=== PATIENT | male | born 1950 | race Caucasian/White ===

== ENCOUNTER 2016-03-12 | Outpatient (CLI) | payer MEDICARE, OTHER | END 2016-03-12 09:12 | disposition home or self-care (01) | DX: Z53.9 Procedure and treatment not carried out, unspecified reason (principal) ==

== ENCOUNTER 2016-03-16 09:17 | Outpatient (CLI) | payer MEDICARE, OTHER | END 2016-03-16 09:18 | disposition home or self-care (01) | DX: N05.9 Unspecified nephritic syndrome with unspecified morphologic changes (principal); T86.10 Unspecified complication of kidney transplant; B34.9 Viral infection, unspecified; D70.9 Neutropenia, unspecified ==

== ENCOUNTER 2016-06-14 09:02 | Outpatient (CLI) | payer MEDICARE, OTHER | END 2016-06-14 09:03 | disposition home or self-care (01) | DX: N05.9 Unspecified nephritic syndrome with unspecified morphologic changes (principal); D70.9 Neutropenia, unspecified; T86.10 Unspecified complication of kidney transplant ==

== ENCOUNTER 2016-06-21 10:21 | Day surgery (SDC) | payer MEDICARE, OTHER ==
[2016-06-21] MEDS ORDERED: LACTATED RINGERS 1,000 ML IV ONE (10:35)
[2016-06-21] MEDS ORDERED: fentaNYL 100 MCG/2 ML VIAL IVP ONE (13:15)
[2016-06-21] MEDS ORDERED: MIDAZOLAM 2 MG/2 ML VIAL IVP ONE (13:15)
== END 2016-06-21 10:22 | disposition home or self-care (01) ==
PROC: 0DJD8ZZ Inspection of Lower Intestinal Tract, Via Natural or Artificial Opening Endoscopic (ICD-10-PCS; principal; 2016-06-21 11:30)
DX: Z12.11 Encounter for screening for malignant neoplasm of colon (principal); Z86.010 Personal history of colon polyps; K64.8 Other hemorrhoids; K57.30 Diverticulosis of large intestine without perforation or abscess without bleeding; Z94.0 Kidney transplant status; G47.30 Sleep apnea, unspecified; E03.9 Hypothyroidism, unspecified
CPT/HCPCS: G0105; J7120

== ENCOUNTER 2016-06-23 12:06 | Outpatient (CLI) | payer MEDICARE, OTHER ==
[2016-06-25 14:00] LABS: TEST RESULT REPORT (())
== END 2016-06-23 12:07 | disposition home or self-care (01) ==
LOC: LAB 12:06
PROVIDERS: ATTEND Internal Medicine Nephrology
DX: Z94.0 Kidney transplant status (principal); E83.40 Disorders of magnesium metabolism, unspecified; Z48.298 Encounter for aftercare following other organ transplant; T86.90 Unspecified complication of unspecified transplanted organ and tissue; B34.9 Viral infection, unspecified
CPT/HCPCS: 36415; 81599; 82306; 87799; 87999

== ENCOUNTER 2016-07-19 09:12 | Outpatient (CLI) | payer MEDICARE, OTHER ==
[2016-07-19 09:51] LABS: HCT - HEMATOCRIT 40.7 % (42.0-52.0); HGB - HEMOGLOBIN 13.8 g/dL (14.0-18.0); MEAN CORPUSCULAR HEMOGLOBIN 28.8 pg (27.0-31.0); MEAN CORPUSCULAR HGB CONC 33.9 g/dL (32.0-36.0); MEAN CORPUSCULAR VOLUME 84.9 fL (80.0-94.0); MEAN PLATELET VOLUME 9.2 fL (7.4-11.4); RED BLOOD COUNT 4.79 10^6/uL (4.70-6.10); RED CELL DISTRIBUTION WIDTH 14.6 % (12.0-15.0); WHITE BLOOD COUNT 9.2 x10^3/uL (4.8-10.8)
[2016-07-19 10:01] LABS: CALCIUM 9.8 mg/dL (8.5-10.3); CREATININE 1.2 mg/dL (0.6-1.2); POTASSIUM 3.8 mmol/L (3.5-5.0)
[2016-07-22 03:53] LABS: TEST RESULT REPORT (())
== END 2016-07-19 09:13 | disposition home or self-care (01) ==
LOC: LAB 09:12
PROVIDERS: ATTEND Internal Medicine Nephrology
DX: N05.9 Unspecified nephritic syndrome with unspecified morphologic changes (principal); D70.9 Neutropenia, unspecified; D53.1 Other megaloblastic anemias, not elsewhere classified; T86.10 Unspecified complication of kidney transplant; B34.9 Viral infection, unspecified
CPT/HCPCS: 36415; 80048; 80197; 81599; 87999

== ENCOUNTER 2016-10-20 09:04 | Outpatient (CLI) | payer MEDICARE, OTHER ==
[2016-10-20 10:10] LABS: BASOPHILS % (AUTO) 1.4 %; EOSINOPHILS % (AUTO) 2.2 %; HCT - HEMATOCRIT 41.5 % (42.0-52.0); HGB - HEMOGLOBIN 14.2 g/dL (14.0-18.0); LYMPHOCYTES % (AUTO) 15.7 %; MEAN CORPUSCULAR HGB CONC 34.2 g/dL (32.0-36.0); MEAN CORPUSCULAR VOLUME 84.8 fL (80.0-94.0); MEAN PLATELET VOLUME 9.2 fL (7.4-11.4); MONOCYTES % (AUTO) 7.4 %; NEUTROPHILS % (AUTO) 73.3 %; RED CELL DISTRIBUTION WIDTH 13.9 % (12.0-15.0); UNCORRECTED WHITE BLOOD COUNT 8.7 x10^3/uL; WHITE BLOOD COUNT 8.7 x10^3/uL (4.8-10.8)
[2016-10-20 10:12] LABS: BAND NEUTROPHILS % (MANUAL) 0 %
[2016-10-20 10:15] LABS: BILIRUBIN,URINE NEGATIVE (NEGATIVE)
[2016-10-20 10:18] LABS: UA CHARGE (STRIP ONLY) YES; UR CULTURE IF IND NOT INDICATED
[2016-10-20 10:23] LABS: ALBUMIN/GLOBULIN RATIO 1.9 (1.0-2.2); CREATININE 1.4 mg/dL (0.6-1.2); MAGNESIUM 1.6 mg/dL (1.7-2.8); POTASSIUM 4.2 mmol/L (3.5-5.0); TOTAL PROTEIN 6.4 g/dL (6.7-8.2)
[2016-10-20 10:32] LABS: BASOPHILS % (MANUAL) 1 %; EOSINOPHILS % (MANUAL) 3 %; LYMPHOCYTES % (MANUAL) 24 %; NEUTROPHILS % (MANUAL) 64 %; TOTAL CELLS COUNTED 100
[2016-10-20 10:33] LABS: NP AUTO DIFFERENTIAL? YES; NP MAN DIFFERENTIAL? NO; PLATELET ESTIMATE, MANUAL NORMAL (130-450,000) (NORMAL); PLATELET MORPHOLOGY 1+ LARGE PLATELETS (NORMAL)
[2016-10-20 10:36] LABS: CHOL/HDL RATIO 4.2 (<5.0); CHOLESTEROL 147 mg/dL; HDL CHOLESTEROL 35 mg/dL; LDL/HDL RATIO 1.9 (<3.6); TRIGLYCERIDES 221 mg/dL; VLDL CHOLESTEROL 44 mg/dL
[2016-10-20 10:48] LABS: HEMOGLOBIN A1C 0.79 g/dL
[2016-10-25 11:57] LABS: TEST RESULT REPORT (())
== END 2016-10-20 09:05 | disposition home or self-care (01) ==
LOC: LAB 09:04
PROVIDERS: ATTEND Internal Medicine Nephrology
DX: N05.9 Unspecified nephritic syndrome with unspecified morphologic changes (principal); Z94.0 Kidney transplant status; R82.99 Other abnormal findings in urine; E11.9 Type 2 diabetes mellitus without complications; E78.5 Hyperlipidemia, unspecified; Z12.5 Encounter for screening for malignant neoplasm of prostate; B34.9 Viral infection, unspecified; D70.9 Neutropenia, unspecified; T86.10 Unspecified complication of kidney transplant; Z48.298 Encounter for aftercare following other organ transplant; T86.90 Unspecified complication of unspecified transplanted organ and tissue; E83.40 Disorders of magnesium metabolism, unspecified
CPT/HCPCS: 36415; 80053; 80061; 80197; 81003; 81599; 82570; 83036; 83735; 84100; 84156; 85025; 87799; G0103; 81001; 84153; 87086

== ENCOUNTER 2016-11-10 13:46 | Outpatient (CLI) | payer MEDICARE, OTHER | END 2016-11-10 13:47 | disposition home or self-care (01) | LOC: SC 13:46 | PROVIDERS: ATTEND Nurse Practitioner Family | DX: G47.33 Obstructive sleep apnea (adult) (pediatric) (principal) | CPT/HCPCS: 99214; G0463; 99212 ==

== ENCOUNTER 2016-12-07 08:59 | Outpatient (CLI) | payer MEDICARE, OTHER ==
[2016-12-07 09:48] LABS: BASOPHILS # (AUTO) 0.1 10^3/uL (0.0-0.1); BASOPHILS % (AUTO) 1.1 %; EOSINOPHILS # (AUTO) 0.2 10^3/uL (0.0-0.7); EOSINOPHILS % (AUTO) 3.2 %; HCT - HEMATOCRIT 40.7 % (42.0-52.0); HGB - HEMOGLOBIN 13.7 g/dL (14.0-18.0); LYMPHOCYTES # (AUTO) 1.4 10^3/uL (1.5-3.5); LYMPHOCYTES % (AUTO) 18.5 %; MEAN CORPUSCULAR HEMOGLOBIN 28.9 pg (27.0-31.0); MEAN CORPUSCULAR HGB CONC 33.8 g/dL (32.0-36.0); MEAN CORPUSCULAR VOLUME 85.7 fL (80.0-94.0); MEAN PLATELET VOLUME 8.9 fL (7.4-11.4); MONOCYTES # (AUTO) 0.7 10^3/uL (0.0-1.0); MONOCYTES % (AUTO) 8.6 %; NEUTROPHILS # (AUTO) 5.2 10^3/uL (1.5-6.6); NEUTROPHILS % (AUTO) 68.6 %; RED BLOOD COUNT 4.75 10^6/uL (4.70-6.10); RED CELL DISTRIBUTION WIDTH 13.9 % (12.0-15.0); UNCORRECTED WHITE BLOOD COUNT 7.6 x10^3/uL; WHITE BLOOD COUNT 7.6 x10^3/uL (4.8-10.8)
[2016-12-07 09:50] LABS: BILIRUBIN,URINE NEGATIVE (NEGATIVE); UA CHARGE (STRIP ONLY) YES; UR CULTURE IF IND NOT INDICATED
[2016-12-07 10:17] LABS: ALBUMIN/GLOBULIN RATIO 1.7 (1.0-2.2); BILIRUBIN,TOTAL 0.6 mg/dL (0.2-1.0); CALCIUM 9.7 mg/dL (8.5-10.3); CREATININE 1.4 mg/dL (0.6-1.2); MAGNESIUM 1.7 mg/dL (1.7-2.8); PHOSPHORUS 2.9 mg/dL (2.5-4.6); POTASSIUM 4.2 mmol/L (3.5-5.0); TOTAL PROTEIN 6.3 g/dL (6.7-8.2)
[2016-12-09 15:21] LABS: TEST RESULT REPORT
[2016-12-10 05:47] LABS: TEST RESULT REPORT
== END 2016-12-07 09:00 | disposition home or self-care (01) ==
LOC: LAB 08:59
PROVIDERS: ATTEND Internal Medicine Nephrology
DX: Z94.0 Kidney transplant status (principal); R82.99 Other abnormal findings in urine; Z48.298 Encounter for aftercare following other organ transplant; T86.90 Unspecified complication of unspecified transplanted organ and tissue; E83.40 Disorders of magnesium metabolism, unspecified; B34.9 Viral infection, unspecified
CPT/HCPCS: 36415; 80053; 80197; 81001; 81003; 81599; 82570; 83735; 84100; 84156; 85025; 87086; 87799

== ENCOUNTER 2017-02-16 15:06 | Outpatient (CLI) | payer MEDICARE, OTHER ==
[2017-02-16 14:04] LABS: BASOPHILS # (AUTO) 0.1 10^3/uL (0.0-0.1); BASOPHILS % (AUTO) 0.7 %; EOSINOPHILS # (AUTO) 0.4 10^3/uL (0.0-0.7); EOSINOPHILS % (AUTO) 4.2 %; HGB - HEMOGLOBIN 14.3 g/dL (14.0-18.0); LYMPHOCYTES # (AUTO) 1.3 10^3/uL (1.5-3.5); LYMPHOCYTES % (AUTO) 14.8 %; MEAN CORPUSCULAR HEMOGLOBIN 29.2 pg (27.0-31.0); MEAN CORPUSCULAR HGB CONC 34.2 g/dL (32.0-36.0); MEAN CORPUSCULAR VOLUME 85.4 fL (80.0-94.0); MEAN PLATELET VOLUME 9.4 fL (7.4-11.4); MONOCYTES # (AUTO) 0.7 10^3/uL (0.0-1.0); MONOCYTES % (AUTO) 8.1 %; NEUTROPHILS # (AUTO) 6.4 10^3/uL (1.5-6.6); NEUTROPHILS % (AUTO) 72.2 %; PLT - PLATELET COUNT 180 10^3/uL (130-450); RED CELL DISTRIBUTION WIDTH 13.8 % (12.0-15.0); WHITE BLOOD COUNT 8.8 x10^3/uL (4.8-10.8)
[2017-02-16 14:23] LABS: ALBUMIN 4.1 g/dL (3.2-5.5); ALBUMIN/GLOBULIN RATIO 1.6 (1.0-2.2); BILIRUBIN,TOTAL 0.5 mg/dL (0.2-1.0); CALCIUM 9.9 mg/dL (8.5-10.3); CREATININE 1.4 mg/dL (0.6-1.2); TOTAL PROTEIN 6.6 g/dL (6.7-8.2)
[2017-02-16 14:43] LABS: PLATELET ESTIMATE, MANUAL NORMAL (130-450,000) (NORMAL); RBC MORPHOLOGY (MULTIPLE) NORMAL APPEARANCE (NORMAL)
[2017-02-16 16:35] LABS: HB2 TOTAL 15.4 g/dL; HEMOGLOBIN A1C 0.78 g/dL; HEMOGLOBIN A1C % 6.8 % (4.6-6.2)
== END 2017-02-16 15:07 | disposition home or self-care (01) ==
LOC: LAB.WCP 15:06
PROVIDERS: ATTEND Family Medicine
DX: R10.11 Right upper quadrant pain (principal); E11.9 Type 2 diabetes mellitus without complications
CPT/HCPCS: 36415; 80053; 83036; 85025

== ENCOUNTER 2017-02-23 07:01 | Outpatient (CLI) | payer MEDICARE, OTHER ==
--- NOTE | 2017-02-23 12:10 | Ultrasound Report ---
DATE OF SERVICE: 02/23/2017 LIMITED ABDOMINAL ULTRASOUND: 02/23/2017 CLINICAL INDICATION: Right upper quadrant pain. TECHNIQUE: Real-time scanning was performed with retail account representative static images obtained. FINDINGS: The liver measures 15.3 cm. Hepatic echogenicity is normal. There is a 2.1 cm cyst in the left lobe. No focal solid lesion or intrahepatic biliary dilatation is seen. The common bile duct measures 5 mm. The gallbladder is normal. The right kidney measures 8.5 cm, and demonstrates an 1.1 cm cyst in the upper pole. No free fluid is present. IMPRESSION: INCIDENTAL HEPATIC CYST. NO EVIDENCE OF CHOLELITHIASIS OR BILIARY OBSTRUCTION. TD: 02/23/2017 13:10
== END 2017-02-23 07:02 | disposition home or self-care (01) ==
LOC: DI 07:01
PROVIDERS: ATTEND Family Medicine
DX: R10.11 Right upper quadrant pain (principal)
CPT/HCPCS: 76705

== ENCOUNTER 2017-03-22 08:57 | Outpatient (CLI) | payer MEDICARE, OTHER ==
[2017-03-22 09:29] LABS: HGB - HEMOGLOBIN 14.2 g/dL (14.0-18.0); MEAN CORPUSCULAR HEMOGLOBIN 29.2 pg (27.0-31.0); MEAN CORPUSCULAR HGB CONC 34.8 g/dL (32.0-36.0); MEAN PLATELET VOLUME 8.8 fL (7.4-11.4); RED BLOOD COUNT 4.88 10^6/uL (4.70-6.10); WHITE BLOOD COUNT 7.7 x10^3/uL (4.8-10.8)
[2017-03-22 09:50] LABS: CALCIUM 9.6 mg/dL (8.5-10.3); CREATININE 1.4 mg/dL (0.6-1.2)
== END 2017-03-22 08:58 | disposition home or self-care (01) ==
LOC: LAB 08:57
PROVIDERS: ATTEND Internal Medicine Nephrology
DX: N05.9 Unspecified nephritic syndrome with unspecified morphologic changes (principal); D70.9 Neutropenia, unspecified; T86.10 Unspecified complication of kidney transplant; B34.9 Viral infection, unspecified; Z94.0 Kidney transplant status
CPT/HCPCS: 36415; 80048; 80197; 81599

== ENCOUNTER 2017-05-11 08:57 | Outpatient (CLI) | payer MEDICARE, OTHER ==
[2017-05-11 09:32] LABS: BILIRUBIN,URINE NEGATIVE (NEGATIVE); GLUCOSE, URINE (UA) NEGATIVE (NEGATIVE); KETONES,URINE (UA) NEGATIVE (NEGATIVE); LEUKOCYTE ESTERASE, URINE NEGATIVE (NEGATIVE); NITRITE,URINE NEGATIVE (NEGATIVE); OCCULT BLOOD,URINE NEGATIVE (NEGATIVE); PROTEIN,URINE NEGATIVE (NEGATIVE); UROBILINOGEN,URINE 0.2 (NORMAL) E.U./dL (NORMAL)
[2017-05-11 09:33] LABS: CLARITY,URINE CLEAR (CLEAR)
[2017-05-11 09:41] LABS: CREATININE,URINE 193.5 mg/dL; PROTEIN/CREATININE RATIO,URINE 0.1 (<=0.2)
[2017-05-11 09:44] LABS: BASOPHILS % (AUTO) 0.9 %; EOSINOPHILS % (AUTO) 3.3 %; HGB - HEMOGLOBIN 14.3 g/dL (14.0-18.0); LYMPHOCYTES % (AUTO) 17.3 %; MEAN CORPUSCULAR HEMOGLOBIN 29.3 pg (27.0-31.0); MEAN CORPUSCULAR HGB CONC 34.5 g/dL (32.0-36.0); MEAN CORPUSCULAR VOLUME 84.9 fL (80.0-94.0); MEAN PLATELET VOLUME 9.1 fL (7.4-11.4); MONOCYTES % (AUTO) 8.3 %; NEUTROPHILS % (AUTO) 70.2 %; PLT - PLATELET COUNT 181 10^3/uL (130-450); RED BLOOD COUNT 4.88 10^6/uL (4.70-6.10); RED CELL DISTRIBUTION WIDTH 14.3 % (12.0-15.0); WHITE BLOOD COUNT 7.4 x10^3/uL (4.8-10.8)
[2017-05-11 09:45] LABS: ALBUMIN 4.1 g/dL (3.2-5.5); ALBUMIN/GLOBULIN RATIO 1.7 (1.0-2.2); BILIRUBIN,TOTAL 0.6 mg/dL (0.2-1.0); CALCIUM 9.4 mg/dL (8.5-10.3); CREATININE 1.3 mg/dL (0.6-1.2); MAGNESIUM 1.7 mg/dL (1.7-2.8); PHOSPHORUS 3.5 mg/dL (2.5-4.6); TOTAL PROTEIN 6.5 g/dL (6.7-8.2)
[2017-05-11 09:50] LABS: ABNORMAL LYMPHS % (MANUAL) 0 %
[2017-05-11 10:15] LABS: BAND NEUTROPHILS % (MANUAL) 2 %; BASOPHILS # (MANUAL) 0.2 10^3/uL (0-0.1); BASOPHILS % (MANUAL) 3 %; LYMPHOCYTES # (MANUAL) 1.4 10^3/uL (1.5-3.5); LYMPHOCYTES % (MANUAL) 16 %; MONOCYTES # (MANUAL) 0.4 10^3/uL (0.0-1.0); NEUTROPHILS # (MANUAL) 5.3 10^3/uL (1.5-6.6); NEUTROPHILS % (MANUAL) 70 %
[2017-05-11 10:16] LABS: DIFFERENTIAL COMMENT MANUAL DIFFERENTIAL
== END 2017-05-11 08:58 | disposition home or self-care (01) ==
LOC: LAB 08:57
PROVIDERS: ATTEND Internal Medicine Nephrology
DX: T86.90 Unspecified complication of unspecified transplanted organ and tissue (principal); E83.40 Disorders of magnesium metabolism, unspecified; Z51.81 Encounter for therapeutic drug level monitoring; Z94.0 Kidney transplant status
CPT/HCPCS: 36415; 80053; 80197; 81001; 81003; 82570; 83735; 84100; 84156; 85025; 87086

== ENCOUNTER 2017-07-25 09:02 | Outpatient (CLI) | payer MEDICARE, OTHER ==
[2017-07-25 09:39] LABS: CALCIUM 9.7 mg/dL (8.5-10.3); CREATININE 1.3 mg/dL (0.6-1.2)
[2017-07-25 09:54] LABS: BASOPHILS % (AUTO) 0.6 %; EOSINOPHILS % (AUTO) 2.9 %; HGB - HEMOGLOBIN 14.4 g/dL (14.0-18.0); LYMPHOCYTES % (AUTO) 15.3 %; MEAN CORPUSCULAR HGB CONC 33.2 g/dL (32.0-36.0); MEAN CORPUSCULAR VOLUME 87.1 fL (80.0-94.0); MONOCYTES % (AUTO) 7.2 %; PLT - PLATELET COUNT 185 10^3/uL (130-450); RED BLOOD COUNT 4.98 10^6/uL (4.70-6.10); RED CELL DISTRIBUTION WIDTH 14.2 % (12.0-15.0); WHITE BLOOD COUNT 7.8 x10^3/uL (4.8-10.8)
[2017-07-25 10:08] LABS: ABNORMAL LYMPHS % (MANUAL) 0 %; BAND NEUTROPHILS % (MANUAL) 0 %
[2017-07-25 10:30] LABS: EOSINOPHILS # (MANUAL) 0.2 10^3/uL (0-0.7); LYMPHOCYTES # (MANUAL) 1.1 10^3/uL (1.5-3.5); LYMPHOCYTES % (MANUAL) 10 %; MONOCYTES # (MANUAL) 0.8 10^3/uL (0.0-1.0); MYELOCYTES % (MANUAL) 1 %; NEUTROPHILS # (MANUAL) 5.6 10^3/uL (1.5-6.6); NEUTROPHILS % (MANUAL) 72 %
[2017-07-25 10:31] LABS: DIFFERENTIAL COMMENT MANUAL DIFFERENTIAL
== END 2017-07-25 09:03 | disposition home or self-care (01) ==
LOC: LAB 09:02
PROVIDERS: ATTEND Internal Medicine Nephrology
DX: N05.9 Unspecified nephritic syndrome with unspecified morphologic changes (principal); D70.9 Neutropenia, unspecified; D63.1 Anemia in chronic kidney disease; T86.10 Unspecified complication of kidney transplant
CPT/HCPCS: 36415; 80048; 80197; 85025

== ENCOUNTER 2017-10-19 09:04 | Outpatient (CLI) | payer MEDICARE, OTHER ==
[2017-10-19 09:26] LABS: BASOPHILS # (AUTO) 0.1 10^3/uL (0.0-0.1); BASOPHILS % (AUTO) 1.3 %; EOSINOPHILS # (AUTO) 0.3 10^3/uL (0.0-0.7); EOSINOPHILS % (AUTO) 3.8 %; HGB - HEMOGLOBIN 14.1 g/dL (14.0-18.0); LYMPHOCYTES # (AUTO) 1.1 10^3/uL (1.5-3.5); LYMPHOCYTES % (AUTO) 14.1 %; MEAN CORPUSCULAR HEMOGLOBIN 29.6 pg (27.0-31.0); MEAN CORPUSCULAR HGB CONC 34.6 g/dL (32.0-36.0); MEAN CORPUSCULAR VOLUME 85.5 fL (80.0-94.0); MEAN PLATELET VOLUME 9.1 fL (7.4-11.4); MONOCYTES # (AUTO) 0.6 10^3/uL (0.0-1.0); MONOCYTES % (AUTO) 7.8 %; NEUTROPHILS # (AUTO) 5.7 10^3/uL (1.5-6.6); PLT - PLATELET COUNT 163 10^3/uL (130-450); RED BLOOD COUNT 4.77 10^6/uL (4.70-6.10); RED CELL DISTRIBUTION WIDTH 14.2 % (12.0-15.0); WHITE BLOOD COUNT 7.8 x10^3/uL (4.8-10.8)
[2017-10-19 09:40] LABS: CALCIUM 9.5 mg/dL (8.5-10.3); CREATININE 1.1 mg/dL (0.6-1.2)
[2017-10-19 09:48] LABS: CHOL/HDL RATIO 3.7 (<5.0); CHOLESTEROL 145 mg/dL; HDL CHOLESTEROL 39 mg/dL; LDL CHOLESTEROL,CALCULATED 73 mg/dL; LDL/HDL RATIO 1.9 (<3.6); VLDL CHOLESTEROL 33 mg/dL
[2017-10-19 13:00] LABS: HEMOGLOBIN A1C 0.83 g/dL; HEMOGLOBIN A1C % 7.2 % (4.6-6.2)
== END 2017-10-19 09:05 | disposition home or self-care (01) ==
LOC: LAB 09:04
PROVIDERS: ATTEND Internal Medicine Nephrology
DX: N05.9 Unspecified nephritic syndrome with unspecified morphologic changes (principal); E11.9 Type 2 diabetes mellitus without complications; D63.1 Anemia in chronic kidney disease; T86.10 Unspecified complication of kidney transplant
CPT/HCPCS: 36415; 80048; 80061; 80197; 83036; 83721; 85025

== ENCOUNTER 2017-11-23 13:40 | Outpatient (CLI) | payer MEDICARE, OTHER | END 2017-11-23 13:41 | disposition home or self-care (01) | LOC: SC 13:40 | PROVIDERS: ATTEND Nurse Practitioner Family | DX: G47.33 Obstructive sleep apnea (adult) (pediatric) (principal); G47.00 Insomnia, unspecified | CPT/HCPCS: 99214; G0463; 99212 ==

== ENCOUNTER 2018-01-09 09:17 | Outpatient (CLI) | payer MEDICARE, OTHER ==
[2018-01-11 18:01] LABS: BK VIRUS DNA QN PCR 588 copies/mL; SOURCE PLASMA
== END 2018-01-09 09:18 | disposition home or self-care (01) ==
LOC: LAB 09:17
PROVIDERS: ATTEND Internal Medicine Nephrology
DX: B34.9 Viral infection, unspecified (principal)
CPT/HCPCS: 36415

== ENCOUNTER 2018-02-10 08:45 | Outpatient (CLI) | payer MEDICARE, OTHER | END 2018-02-10 08:46 | disposition critical access hospital (66) | LOC: EMS 08:45 | PROVIDERS: ATTEND Surgery | DX: M54.9 Dorsalgia, unspecified (principal); R53.1 Weakness | CPT/HCPCS: A0425; A0429 ==

== ENCOUNTER 2018-02-10 08:59 | Inpatient (IN) | payer MEDICARE, OTHER ==
[2018-02-10] MEDS: MAGNESIUM OXIDE 400 MG TABLET PO SCH (09:00)
--- NOTE | 2018-02-10 10:15 | ED Physician Documentation ---
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 He also stated that he had urine and bowel incontinence at 4:00 and at 6:00 this morning. Patient denies any trauma, injury, patient stated he has environmental allergies like runny nose since he visited [place] a week ago. Review of Systems Ten Systems: 10 systems reviewed and negative Constitutional: denies: Fever, Chills, Myalgias Cardiac: denies: Chest pain / pressure Respiratory: denies: Dyspnea GI: denies: Abdominal Pain, Nausea, Vomiting : denies: Dysuria, Frequency Musculoskeletal: reports: Back pain. denies: Neck pain, Extremity pain, Extremity swelling Neurologic: reports: Generalized weakness. denies: Focal weakness, Numbness, Difficulty speaking, Near syncope, Syncope, Altered mental status, Headache, LOC PD PAST MEDICAL HISTORY - Past Medical History Cardiovascular: None Respiratory: None Endocrine/Autoimmune: None GI: GERD Psych: None Musculoskeletal: Osteoarthritis, Fatigue, Chronic back pain - Past Surgical History Past Surgical History: Yes Ortho: Spine surgery - Present Medications Home Medications: Ambulatory Orders Medication Instructions Recorded Confirmed Acetaminophen [Tylenol] 650 mg PO Q6H PRN 05/12/13 02/10/18 Fluconazole [Diflucan] 100 mg PO DAILY 05/12/13 02/10/18 Levothyroxine Sodium [Synthroid] 150 mcg PO DAILY 05/12/13 02/10/18 Omeprazole [Prilosec] 20 mg PO DAILY 05/12/13 02/10/18 RX: Aspirin Chewable [St Mehul 81 mg PO DAILY 05/12/13 02/10/18 Aspirin] RX: Prednisone 5 mg PO DAILY 05/12/13 02/10/18 RX: Simvastatin [Zocor] 10 mg PO DAILY 05/12/13 02/10/18 Fluticasone [Flonase] 1 sprays [place]TON PRN PRN 06/21/16 02/10/18 Losartan [Cozaar] 50 mg PO BID 06/21/16 02/10/18 Pnv95/Ferrous Fumarate/FA 1 each PO DAILY 06/21/16 02/10/18 [ Vitamin Tablet] RX: Albuterol 2.5 mg INH Q4H PRN 06/21/16 02/10/18 RX: Carvedilol 25 mg PO BID 06/21/16 02/10/18 RX: Glipizide 5 mg PO BID 06/21/16 02/10/18 RX: Magnesium Oxide 800 mg PO BID 06/21/16 02/10/18 RX: Metformin HCl 1,000 mg PO BID 06/21/16 02/10/18 RX: Tacrolimus 1.5 mg PO BID 06/21/16 02/10/18 amLODIPine [Norvasc] 5 mg PO BID 06/21/16 02/10/18 - Allergies Allergies/Adverse Reactions: Allergies Allergy/AdvReac Type Severity Reaction Status Date / Time No Known Drug Allergies Allergy Verified 02/10/18 09:07 - Social History Does the pt smoke?: No Smoking Status: Never smoker Does the pt drink ETOH?: No Does the pt have substance abuse?: No - Immunizations Immunizations are current?: Yes - POLST Patient has POLST: Yes POLST Status: DNR PD ED PE NORMAL - Vitals Vital signs reviewed: Yes - General General: Alert and oriented X 3, No acute distress, Well developed/nourished - HEENT HEENT: Moist mucous membranes, Pharynx benign - Neck Neck: Supple, no meningeal sign, No bony TTP - Cardiac Cardiac: RRR, No murmur - Respiratory Respiratory: No respiratory distress, Clear bilaterally - Abdomen Abdomen: Normal bowel sounds, Soft, Non tender, Non distended, No organomegaly - Back Back: No CVA TTP, No spinal TTP - Derm Derm: Normal color, Warm and dry, No rash - Extremities Extremities: No deformity - Neuro Neuro: Alert and oriented X 3, No motor deficit, No sensory deficit, Normal speech - Psych Psych: Normal mood, Normal affect Results - Vitals Vitals: Vital Signs - 24 hr 02/10/18 02/10/18 02/10/18 09:02 12:01 15:33 Temperature 36.5 C Heart Rate 87 71 78 Respiratory 22 16 16 Rate Blood Pressure 130/90 H 138/88 H 158/93 H O2 Saturation 94 96 96 Oxygen O2 Source Room air - Labs Labs: Laboratory Tests 02/10/18 02/10/18 02/10/18 10:31 10:31 10:31 WBC 8.9 RBC 5.38 Hgb 16.0 Hct 46.9 MCV 87.2 MCH 29.7 MCHC 34.0 RDW 13.8 Plt Count 181 MPV 9.3 Neut # (Auto) 7.9 H Lymph # (Auto) 0.1 L Blair # (Auto) 0.5 Eos # (Auto) 0.2 Baso # (Auto) 0.1 Absolute Nucleated RBC 0.00 Nucleated RBC % 0.1 Sodium 140 Potassium 4.1 Chloride 109 Carbon Dioxide 24 Anion Gap 7.0 BUN 26 H Creatinine 1.3 H Estimated GFR (MDRD) 55 L Glucose 182 H Calcium 9.3 Total Bilirubin 1.2 H AST 18 ALT 17 Alkaline Phosphatase 97 Total Creatine Kinase Troponin I < 0.04 Total Protein 6.8 Albumin 4.2 Globulin 2.6 Albumin/Globulin Ratio 1.6 Lipase 49 Urine Color Urine Clarity Urine pH Ur Specific [place] Urine Protein Urine Glucose (UA) Urine Ketones Urine Occult Blood Urine Nitrite Urine Bilirubin Urine Urobilinogen Ur Leukocyte Esterase Ur Microscopic Review Urine Culture Comments 02/10/18 02/10/18 10:31 12:03 WBC RBC Hgb Hct MCV MCH MCHC RDW Plt Count MPV Neut # (Auto) Lymph # (Auto) [place] # (Auto) Eos # (Auto) Baso # (Auto) Absolute Nucleated RBC Nucleated RBC % Sodium Potassium Chloride Carbon Dioxide Anion Gap BUN Creatinine Estimated GFR (MDRD) Glucose Calcium Total Bilirubin AST ALT Alkaline Phosphatase Total Creatine Kinase 56 Troponin I Total Protein Albumin Globulin Albumin/Globulin Ratio Lipase Urine Color DARK YELLOW Urine Clarity CLEAR Urine pH 5.5 Ur Specific [place] >=1.030 H Urine Protein NEGATIVE Urine Glucose (UA) NEGATIVE Urine Ketones TRACE Urine Occult Blood NEGATIVE Urine Nitrite NEGATIVE Urine Bilirubin NEGATIVE Urine Urobilinogen 0.2 (NORMAL) Ur Leukocyte Esterase NEGATIVE Ur Microscopic Review NOT INDICATED Urine Culture Comments NOT INDICATED PD MEDICAL DECISION MAKING - ED course Complexity details: reviewed results, re-evaluated patient, considered differential (Kidney stone, UTI, electrolyte imbalance, lumbar strain, cauda equina syndrome), d/w patient, d/w family, d/w PMD ED course: 1130 patient informed of lab results and agreed to CT scan. Per nurse requesting for IV fluids so he can urinate. 1230 Patient states His back hurts when he would transfer from the CT scan to the stretcher. He is not wanting any pain medication.1440 patient updated on test results.Patient finally agreed to get some pain medication.1630 patient did not tolerated ambulation as his left lumbar area was hurting him With spasms and his knees were unsteady. He stated he cannot go home like this as he lives alone at home. He agreed to Valium p.o. 1642 Case discussed with hospitalist who will admit the patient for observation. He was also informed that patient immune suppressant medication has not been taken for 10 hours. He will order all his meds. Departure - Departure Disposition: ED Place in Observation Clinical Impression: Weakness Back pain Qualifiers: Back pain location: low back pain Chronicity: acute Back pain laterality: left Sciatica presence: without sciatica Qualified Code(s): M54.5 - Low back pain Condition: Stable Discharge Date/Time: 02/10/18 17:17
[2018-02-10 10:41] LABS: BASOPHILS # (AUTO) 0.1 10^3/uL (0.0-0.1); BASOPHILS % (AUTO) 1.2 %; EOSINOPHILS # (AUTO) 0.2 10^3/uL (0.0-0.7); EOSINOPHILS % (AUTO) 2.6 %; LYMPHOCYTES # (AUTO) 0.1 10^3/uL (1.5-3.5); LYMPHOCYTES % (AUTO) 1.5 %; MEAN CORPUSCULAR HEMOGLOBIN 29.7 pg (27.0-31.0); MEAN CORPUSCULAR VOLUME 87.2 fL (80.0-94.0); MEAN PLATELET VOLUME 9.3 fL (7.4-11.4); MONOCYTES # (AUTO) 0.5 10^3/uL (0.0-1.0); MONOCYTES % (AUTO) 5.8 %; NEUTROPHILS # (AUTO) 7.9 10^3/uL (1.5-6.6); NEUTROPHILS % (AUTO) 88.9 %; PLT - PLATELET COUNT 181 10^3/uL (130-450); RED BLOOD COUNT 5.38 10^6/uL (4.70-6.10); RED CELL DISTRIBUTION WIDTH 13.8 % (12.0-15.0); WHITE BLOOD COUNT 8.9 x10^3/uL (4.8-10.8)
[2018-02-10] MEDS ORDERED: SODIUM CHLORIDE 0.9% 1,000 ML IV ONE (10:51)
[2018-02-10 10:52] LABS: ALBUMIN 4.2 g/dL (3.2-5.5); ALBUMIN/GLOBULIN RATIO 1.6 (1.0-2.2); BILIRUBIN,TOTAL 1.2 mg/dL (0.2-1.0); CALCIUM 9.3 mg/dL (8.5-10.3); CREATININE 1.3 mg/dL (0.6-1.2); TOTAL PROTEIN 6.8 g/dL (6.7-8.2)
--- NOTE | 2018-02-10 11:30 | XRAY Report ---
Reason: chest pain Procedure Date: 02/10/2018 Accession Number: [id number] / [id number] Procedure: XR - Chest 1 View X-Ray CPT Code: 85645 FULL RESULT: EXAM: CHEST RADIOGRAPHY EXAM DATE: 02/10/2018 10:59 AM. CLINICAL HISTORY: Chest pain. COMPARISON: 03/07/2015 10:31 AM. TECHNIQUE: 1 view. FINDINGS: Lungs/Pleura: No focal consolidation evident. No pleural effusion. No pneumothorax. Mediastinum: Within exam limitations, the cardiomediastinal contour is normal. Other: Mild scoliosis. IMPRESSION: Negative single view chest. No significant change from prior. RADIA
[2018-02-10 12:11] LABS: KETONES,URINE (UA) TRACE mg/dL (NEGATIVE); LEUKOCYTE ESTERASE, URINE NEGATIVE (NEGATIVE); NITRITE,URINE NEGATIVE (NEGATIVE); OCCULT BLOOD,URINE NEGATIVE (NEGATIVE); PH,URINE 5.5 PH (5.0-7.5); PROTEIN,URINE NEGATIVE (NEGATIVE); UROBILINOGEN,URINE 0.2 (NORMAL) E.U./dL (NORMAL)
[2018-02-10 12:18] LABS: BILIRUBIN,URINE NEGATIVE (NEGATIVE); CLARITY,URINE CLEAR (CLEAR); GLUCOSE, URINE (UA) NEGATIVE (NEGATIVE); ICTOTEST,URINE NEGATIVE
[2018-02-10] MEDS ORDERED: IOVERSOL 320 100 ML VIAL IVP ONE ×3 (12:47→13:23)
--- NOTE | 2018-02-10 14:06 | CT Report ---
Reason: back pain, hx kidney transplant Procedure Date: 02/10/2018 Accession Number: [id number] / [id number] Procedure: CT - Abdomen/Pelvis W/ CPT Code: FULL RESULT: EXAM: CT ABDOMEN AND PELVIS EXAM DATE: 02/10/2018 01:07 PM. CLINICAL HISTORY: Back pain and history of renal transplant. COMPARISONS: None. TECHNIQUE: Routine helical CT imaging was performed through the abdomen and pelvis. IV contrast: OPTI 320 60mL. Enteric contrast: No. Reconstructions: Coronal and sagittal. In accordance with CT protocol optimization, one or more of the following dose reduction techniques were utilized for this exam: automated exposure control, adjustment of mA and/or KV based on patient size, or use of iterative reconstructive technique. FINDINGS: Lung Bases: Unremarkable. Liver: Normal. No masses. Gallbladder/Bile Ducts: Unremarkable. Spleen: Normal. Pancreas: Normal. Adrenal Glands: Normal. Kidneys: Transplanted right lower quadrant kidney appears normal. Right [place] kidney is atrophic and the left [place] kidney is absent. Peritoneal Cavity/Bowel: Diverticulosis without diverticulitis. No free fluid, free air or adenopathy. No masses or acute inflammatory process. Pelvic Organs: Normal. The bladder and visualized pelvic organs are within normal limits. Vasculature: Atherosclerotic. Bones: Approximate 4 mm of anterolisthesis of L3 on L4 status post posterior fusion and decompression at the L3 level. There is also 1.1 cm left lateral listhesis of L3 on L4. Other: Status post right inguinal mesh hernia repair. IMPRESSION: Lumbar spinal listhesis as described. RADIA
[2018-02-10] MEDS ORDERED: MORPHINE 2 MG/ML CARPUJECT IVP STA (14:40)
[2018-02-10] MEDS ORDERED: diazePAM 5 MG TABLET PO STA (16:43)
[2018-02-10] MEDS ORDERED: ACETAMINOPHEN 325 MG TABLET PO PRN (16:46)
[2018-02-10] MEDS ORDERED: ONDANSETRON 4 MG/2 ML VIAL IVP PRN (16:46)
[2018-02-10] MEDS ORDERED: HYDROcod/ACETAM 10 MG/325 MG TABLET PO PRN (16:46)
[2018-02-10] MEDS ORDERED: MORPHINE 2 MG/ML CARPUJECT IVP PRN (16:46)
[2018-02-10] MEDS ORDERED: PROCHLORPERAZINE 10 MG/2 ML VIAL IVP PRN (16:46)
[2018-02-10] MEDS ORDERED: diazePAM 5 MG TABLET PO PRN (16:46)
[2018-02-10] MEDS ORDERED: IBUPROFEN 600 MG TABLET PO PRN (16:46)
[2018-02-10] MEDS ORDERED: HYDROcod/ACETAM 5/325 MG TABLET PO PRN (16:46)
[2018-02-10] MEDS ORDERED: ZOLPIDEM 5 MG TABLET PO PRN (16:46)
[2018-02-10] MEDS ORDERED: PROMETHAZINE 25 MG/1 ML VIAL IM PRN (16:46)
[2018-02-10] MEDS ORDERED: FLUTICASONE NASAL SPRAY NAS PRN (16:52)
--- NOTE | 2018-02-10 17:13 | HISTORY & PHYSICAL EXAMINATION ---
Chief Complaint - Chief Complaint Chief Complaint: Back pain and generalized weakness. History of Present Illness - Admitted From Admitted From:: Emergency department - History Obtained From Records Reviewed: Yes History obtained from: Patient in medical record Exam Limitations: None - History of Present Illness HPI Comment/Other: Patient is a very pleasant 67-year-old gentleman with a past medical history significant for chronic kidney disease stage II with history of a renal transplant on tacrolimus and prednisone, hypertension, type 2 diabetes mellitus, hyperlipidemia, obstructive sleep apnea on CPAP, gout and history of multiple spinal surgeries including a microdiscectomy in 1985, laminectomy in 2012 and a fusion in 2015 who presented to the emergency department with a chief complaint of back pain and generalized weakness. The patient states that yesterday evening he began having severe pain across the lumbar area of his back. He states that it was not midline and was shifting from right to left. He states that he noticed spasms on both sides. He states that later in the evening he had incontinence of both urine and stool. This is when he became very concerned. He states that he went to bed and when he woke up this morning he could not sit up or roll over. He states that he was so weak and finally decided to come into the emergency department. The patient denies any radiation of his back pain. He does not have any focal weakness but finds it very difficult to keep his balance and to sit up. He denies any fevers or chills. He denies any neck stiffness. He denies any recent unintentional weight loss, changes in his appetite, abdominal pain, nausea, vomiting, or diarrhea. The patient denies any headaches. Patient denies any blurry vision, runny nose, sore throat, nasal congestion, difficulty swallowing, chest pain, shortness of air, orthopnea, palpitations, cough, increased lower extremity swelling, PND, joint swelling, polyuria, polydipsia, dysuria, skin rashes, skin changes, night sweats or any other focal neurologic deficits. On presentation to the emergency department the patient was afebrile and slightly hypertensive. The patient otherwise did not have any respiratory distress. The patient underwent routine lab work which showed a normal CBC. The patient had a creatinine of 1.3 which was near his baseline. Patient's other electrolytes were within normal limits. The patient's urinalysis was negative. The patient's troponin was negative. The patient did undergo imaging initially with a chest x-ray which showed no significant change from prior x- ray. The patient also had a CT of his abdomen and pelvis which did show lumbar spinal listhesis. There was finding of 4 mm of anterolisthesis of L3 on L4 status post posterior fusion and decompression at the level of L3. There was also a 1.1 cm left lateral listhesis of L3 on L4. The emergency room physician did do a rectal exam which revealed a good rectal tone. The patient did not have any focal weakness on examination and did not appear to have cauda equina symptoms while in the emergency department. The patient was given a dose of morphine at a dose of Valium in the emergency department with which she did feel better. The patient was stood up and walked in the emergency department however when he got up he felt dizzy and was very weak and unsteady. Given the patient's continued weakness the patient was placed in observation for further treatment of his back pain and muscle spasms. History - Past Medical History Cardiovascular: reports: Hypertension, High cholesterol, Atrial fibrillation Respiratory: reports: Asthma, Sleep apnea, CPAP use Endocrine/Autoimmune: reports: Type 2 diabetes, HyPOthyroidism GI: reports: GERD : reports: Benign prostate hypertrophy, Renal insuffiency Psych: reports: None Musculoskeletal: reports: Osteoarthritis, Gout, Fatigue, Chronic back pain (Multiple spinal surgeries Secondary to bulging disks) MRSA Hx?: No Other Past Medical History: History of coccidiomycosis - Past Surgical History Ortho: reports: Spine surgery - Family & Social History Family History: Mother: Diabetes, Type 2, Father: Diabetes, Type 2 Family History Comment/Other: Patient's father had obstructive sleep apnea Living arrangement: At home Living Situation: With spouse/s.o. 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 He is and lives with his . He works in [employer]. He previously lived in [facility]. He has been living in [facility] since 2003. He does not have any children. He is originally from [place] and went to the [employer] for medical school. He was part of the first graduating class at of the [employer] medical school in 1974. He does not smoke cigarettes, drink alcohol or use any illicit drugs. - POLST Patient has POLST: Yes POLST Status: Full Code Meds/Allgy - Home Medications Home Medications: Ambulatory Orders Medication Instructions Recorded Confirmed Acetaminophen [Tylenol] 650 mg PO Q6H PRN 05/12/13 02/10/18 Aspirin Chewable [St Meh[place] 81 mg PO DAILY 05/12/13 02/10/18 Aspirin] Fluconazole [Diflucan] 100 mg PO DAILY 05/12/13 02/10/18 Levothyroxine Sodium [Synthroid] 150 mcg PO DAILY 05/12/13 02/10/18 Omeprazole [Prilosec] 20 mg PO DAILY 05/12/13 02/10/18 Prednisone 5 mg PO DAILY 05/12/13 02/10/18 Simvastatin [Zocor] 10 mg PO DAILY 05/12/13 02/10/18 Albuterol 2.5 mg INH Q4H PRN 06/21/16 02/10/18 Carvedilol 25 mg PO BID 06/21/16 02/10/18 Fluticasone [Flonase] 1 sprays [place] PRN PRN 06/21/16 02/10/18 Glipizide 5 mg PO BID 06/21/16 02/10/18 Losartan [Cozaar] 50 mg PO BID 06/21/16 02/10/18 Magnesium Oxide 800 mg PO BID 06/21/16 02/10/18 Metformin HCl 1,000 mg PO BID 06/21/16 02/10/18 Pnv95/Ferrous Fumarate/FA 1 each PO DAILY 06/21/16 02/10/18 [ Vitamin Tablet] Tacrolimus 1.5 mg PO BID 06/21/16 02/10/18 amLODIPine [Norvasc] 5 mg PO BID 06/21/16 02/10/18 - Allergies Allergies/Adverse Reactions: Allergies Allergy/AdvReac Type Severity Reaction Status Date / Time No Known Drug Allergies Allergy Verified 02/10/18 09:07 Review of Systems - Other Findings Other Findings: A comprehensive review of systems was performed the pertinent positives and negatives are stated above in the HPI and the remainder of the review of systems is negative. Prior Level of Functionality: Patient is completely independent with all his activities of daily living. Exam - Vital Signs Reviewed Vital Signs: Yes Vital Signs: Vital Signs x48h Temp Pulse Resp BP Pulse Ox 02/10/18 17:04 36.8 C 76 16 166/99 H 100 02/10/18 15:33 78 16 158/93 H 96 02/10/18 12:01 71 16 138/88 H 96 - Physical Exam General Appearance: positive: No acute distress, Alert, Other (Obese) Eyes Bilateral: positive: Normal inspection, PERRL, EOMI, No lid inflammation, Conjunctivae nml, No scleral icterus ENT: positive: ENT inspection nml, Pharynx nml, Dry mucous membranes. negative: Purulent nasal drainage, Pharyngeal erythema, Oral lesions Neck: positive: Nml inspection, Thyroid nml, No JVD, Trachea midline. negative: Thyromegaly, Lymphadenopathy (R), Lymphadenopathy (L), Carotid bruit, Tracheal deviation Respiratory: positive: Chest non-tender, No respiratory distress, Breath sounds nml. negative: Wheezes, Rales, Rhonchi Cardiovascular: positive: Regular rate & rhythm, No murmur, No gallop Peripheral Pulses: positive: 2+ Abdomen: positive: Non-tender, No organomegaly, Nml bowel sounds, No distention. negative: Guarding, Rebound, Hepatomegaly Back: positive: Nml inspection, Other (The patient does not have any spinal tenderness on examination. The patient does have some paraspinal muscle spasms around the lumbar area. This is worse on the left than the right. He has decreased range of motion of the spine when he is flexing his spine due to pain.). negative: CVA tenderness (R), CVA tenderness (L) Skin: positive: Color nml, No rash, Warm, Dry. negative: Cyanosis, Diaphoresis, Pallor, Skin rash Extremities: positive: Non-tender, Full ROM, Nml appearance, No pedal edema. negative: Joint swelling Neurologic/Psychiatric: positive: Oriented x3, CN's nml (2-12), Motor nml, Sensation nml, Mood/affect nml Conclusion/Plan - Problem List (1) Intractable back pain Conclusion/Plan: The patient has a history of multiple spinal surgeries in the past for bulging disks. Today he presents with worsening back pain. The pain is in the lumbar spine. The patient was concerned as he had generalized weakness and urinary and fecal incontinence while he was at home. On examination the patient does not have any sensory deficits or any localized weakness. The patient also has normal rectal tone on rectal examination. The patient's CT shows 4 mm of anterolisthesis of L3 on L4 and 1.1 cm left lateral listhesis of L3 on L4. The CT findings do support the patient's symptoms as most of his symptoms are localized in the left lumbar area with muscle spasms. Unfortunately in the emergency department the patient's symptoms were not adequately controlled and the patient was not stable to ambulate independently. Therefore the patient is being placed in observation for further treatment and physical therapy. Plan: Tylenol, [place] and IV morphine for pain control Valium for muscle spasms Prednisone 40 mg for anti-inflammatory agent Patient is not allowed NSAIDs due to his renal transplant Physical therapy consultation If patient has any symptoms to suggest cauda equina syndrome while he is hospitalized we will need urgent consultation with neurosurgery and possible transfer. (2) Weakness Conclusion/Plan: The patient had generalized weakness at home with urinary and fecal incontinence. He does not have any focal neurologic deficits. He also has good rectal tone on examination. He has not had any urinary or fecal incontinence since he has been in the emergency department. The patient does not have any sensory loss on examination or any focal deficits. The patient does not appear to have any findings of cauda equina syndrome on examination although he did state that he had urinary and fecal incontinence at home. The patient's CT abdomen pelvis shows left lateral and anterolisthesis at L3. These findings are consistent with the patient's symptoms. The patient had difficulty ambulating and getting around in the emergency department therefore he is being placed in observation for pain control and physical therapy evaluation. Plan: Patient will be monitored overnight and given medications to help with his symptoms. If patient develops any symptoms concerning for cauda equina then we will get an urgent consult from neurosurgery and likely transfer the patient PT evaluation (3) Chronic renal failure, stage 2 (mild) Conclusion/Plan: Patient has a history of a renal transplant and now has CKD stage II on his transplanted kidney. The patient is on rejection medication with tacrolimus and prednisone. The patient is not allowed NSAIDs. Plan: Continue patient's immunosuppressive medication Monitor creatinine daily Avoid nephrotoxic agents including NSAIDs. Give IV fluids. (4) Hypertension Conclusion/Plan: The patient has a history of hypertension and is on antihypertensives at home. On presentation the patient is slightly hypertensive likely secondary to pain. Patient will be continued on his home antihypertensive medications and will continue to monitor his blood pressure. Stable Qualifiers: Hypertension type: essential hypertension Qualified Code(s): I10 - Essential (primary) hypertension (5) Diabetes Conclusion/Plan: The patient has a history of type 2 diabetes which occurred after he started his immunosuppressive medications. The patient is obese and does have a family his tory of diabetes as well. The patient is on metformin and glipizide at home. Plan: Metformin and glipizide will be held while the patient is hospitalized Patient will be placed on sliding scale insulin We will check blood glucose before meals at bedtime We will check a hemoglobin A1c Patient will be placed on a diabetic diet. Qualifiers: Diabetes mellitus type: type 2 Diabetes mellitus intermodal owner operator truck driver insulin use: without intermodal owner operator truck driver use Diabetes mellitus complication status: without complication Qualified Code(s): E11.9 - Type 2 diabetes mellitus without complications (6) Hyperlipidemia Conclusion/Plan: Patient is a history of hyperlipidemia and is on a low-dose statin. We will continue him on his Zocor while he is hospitalized Qualifiers: Hyperlipidemia type: unspecified Qualified Code(s): E78.5 - Hyperlipidemia, unspecified (7) Hypothyroidism Conclusion/Plan: Patient has a history of hypothyroidism and will be continued on his home dose of Synthroid. We will check the patient's TSH in the morning. Qualifiers: Hypothyroidism type: unspecified Qualified Code(s): E03.9 - Hypothyroidism, unspecified - Lab Results Lab results reviewed: Yes Fish Bones: 02/10/18 10:31 02/10/18 10:31 Other Lab Results: Laboratory Results WBC 8.9 x10^3/uL (4.8-10.8) 02/10/18 10:31 RBC 5.38 10^6/uL (4.70-6.10) 02/10/18 10:31 Hgb 16.0 g/dL (14.0-18.0) 02/10/18 10:31 Hct 46.9 % (42.0-52.0) 02/10/18 10:31 MCV 87.2 fL (80.0-94.0) 02/10/18 10:31 MCH 29.7 pg (27.0-31.0) 02/10/18 10:31 MCHC 34.0 g/dL (32.0-36.0) 02/10/18 10:31 RDW 13.8 % (12.0-15.0) 02/10/18 10:31 Plt Count 181 10^3/uL (130-450) 02/10/18 10:31 MPV 9.3 fL (7.4-11.4) 02/10/18 10:31 Neut # (Auto) 7.9 10^3/uL (1.5-6.6) H 02/10/18 10:31 Lymph # (Auto) 0.1 10^3/uL (1.5-3.5) L 02/10/18 10:31 [place] # (Auto) 0.5 10^3/uL (0.0-1.0) 02/10/18 10:31 Eos # (Auto) 0.2 10^3/uL (0.0-0.7) 02/10/18 10:31 Baso # (Auto) 0.1 10^3/uL (0.0-0.1) 02/10/18 10:31 Absolute Nucleated RBC 0.00 x10^3/uL 02/10/18 10:31 Nucleated RBC % 0.1 /100WBC 02/10/18 10:31 Sodium 140 mmol/L (135-145) 02/10/18 10:31 Potassium 4.1 mmol/L (3.5-5.0) 02/10/18 10:31 Chloride 109 mmol/L (101-111) 02/10/18 10:31 Carbon Dioxide 24 mmol/L (21-32) 02/10/18 10:31 Anion Gap 7.0 (6-13) 02/10/18 10:31 BUN 26 mg/dL (6-20) H 02/10/18 10:31 Creatinine 1.3 mg/dL (0.6-1.2) H 02/10/18 10:31 Estimated GFR (MDRD) 55 (>89) L 02/10/18 10:31 Glucose 182 mg/dL (70-100) H 02/10/18 10:31 Calcium 9.3 mg/dL (8.5-10.3) 02/10/18 10:31 Total Bilirubin 1.2 mg/dL (0.2-1.0) H 02/10/18 10:31 AST 18 IU/L (10-42) 02/10/18 10:31 ALT 17 IU/L (10-60) 02/10/18 10:31 Alkaline Phosphatase 97 IU/L (42-121) 02/10/18 10:31 Total Creatine Kinase 56 IU/L (22-269) 02/10/18 10:31 Troponin I < 0.04 ng/mL (<0.49) 02/10/18 10:31 Total Protein 6.8 g/dL (6.7-8.2) 02/10/18 10:31 Albumin 4.2 g/dL (3.2-5.5) 02/10/18 10:31 Globulin 2.6 g/dL (2.1-4.2) 02/10/18 10:31 Albumin/Globulin Ratio 1.6 (1.0-2.2) 02/10/18 10:31 Lipase 49 U/L (22-51) 02/10/18 10:31 Urine Color DARK YELLOW 02/10/18 12:03 Urine Clarity CLEAR (CLEAR) 02/10/18 12:03 Urine pH 5.5 PH (5.0-7.5) 02/10/18 12:03 Ur Specific [place] >=1.030 (1.002-1.030) H 02/10/18 12:03 Urine Protein NEGATIVE mg/dL (NEGATIVE) 02/10/18 12:03 Urine Glucose (UA) NEGATIVE mg/dL (NEGATIVE) 02/10/18 12:03 Urine Ketones TRACE mg/dL (NEGATIVE) 02/10/18 12:03 Urine Occult Blood NEGATIVE (NEGATIVE) 02/10/18 12:03 Urine Nitrite NEGATIVE (NEGATIVE) 02/10/18 12:03 Urine Bilirubin NEGATIVE (NEGATIVE) 02/10/18 12:03 Urine Urobilinogen 0.2 (NORMAL) E.U./dL (NORMAL) 02/10/18 12:03 Ur Leukocyte Esterase NEGATIVE (NEGATIVE) 02/10/18 12:03 Ur Microscopic Review NOT INDICATED 02/10/18 12:03 Urine Culture Comments NOT INDICATED 02/10/18 12:03 - Diagnostic Imaging Results Diagnostic Imaging Results: positive: Final report reviewed Diagnostic Imaging Results Comments: Chest x-ray Impression: Negative single view chest. No significant change from prior. CT abdomen/pelvis Impression: Approximate 4 mm of anterolisthesis of L3 on L4 status post posterior fusion and decompression at L3 level. There is also a 1.1 cm left lateral listhesis of L3 on L4. Core Measures - Anticipated LOS I expect patient to be DC'd or transferred within 96 hours.: Yes - DVT/VTE - Prophylaxis VTE/DVT Device ordered at admit?: Yes
[2018-02-10] MEDS: SODIUM CHLORIDE 0.9% 1,000 ML IV SCH (17:43)
[2018-02-10] MEDS: SODIUM CHLORIDE FLUSH 0.9% 10 ML SYRINGE IVP SCH (18:01)
[2018-02-10] MEDS: ALBUTEROL NEB 2.5 MG/3 ML INH PRN (18:17)
[2018-02-10] MEDS: ATORVASTATIN 10 MG TABLET PO SCH (19:15)
[2018-02-10] MEDS: PRENATAL VITAMIN TABLET PO SCH (19:15)
[2018-02-10] MEDS: LEVOTHYROXINE 75 MCG TABLET PO SCH (19:15)
[2018-02-10] MEDS: predniSONE 20 MG TABLET PO SCH (19:15)
[2018-02-10] MEDS: ASPIRIN CHEW 81 MG TABLET PO SCH (19:16)
[2018-02-10] MEDS: INSULIN ASPART 300 UNIT/3 ML PEN SUBQ SCH ×2 (19:17→22:33)
[2018-02-10] MEDS: amLODIPine 5 MG TABLET PO SCH (21:11)
[2018-02-10] MEDS: LOSARTAN 50 MG TABLET PO SCH (21:11)
[2018-02-10] MEDS: CARVEDILOL 12.5 MG TABLET PO SCH (21:11)
[2018-02-10] MEDS: FAMOTIDINE 20 MG TABLET PO SCH (21:12)
[2018-02-10] MEDS: TACROLIMUS 0.5 MG CAPSULE PO SCH (21:13)
[2018-02-11] MEDS: SODIUM CHLORIDE 0.9% 1,000 ML IV SCH ×2 (03:39→13:46)
[2018-02-11] MEDS: SODIUM CHLORIDE FLUSH 0.9% 10 ML SYRINGE IVP SCH ×3 (03:39→17:20)
[2018-02-11 05:24] LABS: BASOPHILS % (AUTO) 0.3 %; EOSINOPHILS % (AUTO) 0.1 %; HGB - HEMOGLOBIN 14.2 g/dL (14.0-18.0); LYMPHOCYTES # (AUTO) 0.6 10^3/uL (1.5-3.5); LYMPHOCYTES % (AUTO) 12.8 %; MEAN CORPUSCULAR HEMOGLOBIN 29.5 pg (27.0-31.0); MEAN CORPUSCULAR HGB CONC 32.9 g/dL (32.0-36.0); MEAN CORPUSCULAR VOLUME 89.6 fL (80.0-94.0); MEAN PLATELET VOLUME 9.7 fL (7.4-11.4); MONOCYTES # (AUTO) 0.1 10^3/uL (0.0-1.0); MONOCYTES % (AUTO) 2.8 %; NEUTROPHILS # (AUTO) 4.1 10^3/uL (1.5-6.6); PLT - PLATELET COUNT 169 10^3/uL (130-450); RED BLOOD COUNT 4.81 10^6/uL (4.70-6.10); RED CELL DISTRIBUTION WIDTH 14.2 % (12.0-15.0); WHITE BLOOD COUNT 4.9 x10^3/uL (4.8-10.8)
[2018-02-11 05:39] LABS: ALBUMIN 3.3 g/dL (3.2-5.5); ALBUMIN/GLOBULIN RATIO 1.4 (1.0-2.2); BILIRUBIN,TOTAL 1.1 mg/dL (0.2-1.0); CALCIUM 8.6 mg/dL (8.5-10.3); CREATININE 1.1 mg/dL (0.6-1.2); MAGNESIUM 1.8 mg/dL (1.7-2.8); PHOSPHORUS 2.3 mg/dL (2.5-4.6); TOTAL PROTEIN 5.6 g/dL (6.7-8.2)
[2018-02-11 05:42] LABS: HB2 TOTAL 15.3 g/dL; HEMOGLOBIN A1C 0.8 g/dL; HEMOGLOBIN A1C % 6.9 % (4.6-6.2)
[2018-02-11] MEDS: ALBUTEROL NEB 2.5 MG/3 ML INH PRN ×2 (07:37→15:09)
[2018-02-11] MEDS: amLODIPine 5 MG TABLET PO SCH ×2 (08:01→21:04)
[2018-02-11] MEDS: PRENATAL VITAMIN TABLET PO SCH (08:01)
[2018-02-11] MEDS: TACROLIMUS 0.5 MG CAPSULE PO SCH ×2 (08:01→21:04)
[2018-02-11] MEDS: FAMOTIDINE 20 MG TABLET PO SCH ×2 (08:01→21:05)
[2018-02-11] MEDS: MAGNESIUM OXIDE 400 MG TABLET PO SCH ×2 (08:02→21:03)
[2018-02-11] MEDS: LOSARTAN 50 MG TABLET PO SCH ×2 (08:02→21:04)
[2018-02-11] MEDS: LEVOTHYROXINE 75 MCG TABLET PO SCH (08:02)
[2018-02-11] MEDS: predniSONE 20 MG TABLET PO SCH (08:02)
[2018-02-11] MEDS: ATORVASTATIN 10 MG TABLET PO SCH (08:03)
[2018-02-11] MEDS: INSULIN ASPART 300 UNIT/3 ML PEN SUBQ SCH ×4 (08:03→21:12)
[2018-02-11] MEDS: CARVEDILOL 12.5 MG TABLET PO SCH ×2 (08:03→21:04)
[2018-02-11] MEDS: ASPIRIN CHEW 81 MG TABLET PO SCH (08:04)
[2018-02-11] MEDS: POLYETHYLENE GLYCOL 3350 17 GM PACKET PO SCH (08:05)
[2018-02-11] MEDS: FLUCONAZOLE 100 MG TABLET PO SCH (08:07)
[2018-02-11] MEDS ORDERED: METHOCARBAMOL 500 MG TABLET PO PRN (13:47)
--- NOTE | 2018-02-11 13:55 | PROVIDER PROGRESS NOTE ---
Assessment/Plan - Problem List (1) Intractable back pain Assessment/Plan: Patient continues to have back pain and difficulty with ambulating independently. The patient's Pain appears to be controlled with medications. Patient worked with physical therapy today and was able to ambulate however he is not safe to go home on his own. He will not have help at home today until late tonight when his friend arrives from [place]. The patient will be held in the hospital until tomorrow morning when discharge would appear to be safer. Patient will be continued on prednisone, Tylenol, [place] and morphine as needed. Patient will be given Robaxin instead of Valium for muscle spasms as the Valium made the patient very drowsy. The patient has severe osteoarthritis and listhesis of his vertebra and likely has facet impingement causing his symptoms. The patient does need to follow-up with a compensation specialist for further evaluation as an outpatient. (2) Weakness Conclusion/Plan: The patient's weakness has improved however the patient continues to have difficulties ambulating independently. The patient is not comfortable nor does it appear to be safe for him to go home alone. We will await for patient's help to arrive late this evening and discharge the patient tomorrow morning as long as he remains stable. The patient does not have any focal weakness or any signs of cord impingement. (3) Chronic renal failure, stage 2 (mild) Conclusion/Plan: Creatinine is improved today at 1.1. We will continue to avoid nephrotoxic agents and continue hydration. (4) Hypertension Conclusion/Plan: Patient's blood pressure is slightly elevated this morning. Patient will be continued on his home medications We will monitor patient's blood pressure and titrate medications as needed. Qualifiers: Hypertension type: essential hypertension Qualified Code(s): I10 - Essential (primary) hypertension (5) Diabetes Conclusion/Plan: Patient's glipizide and metformin have been held and he is on a sliding scale insulin with a diabetic diet. Patient's hemoglobin A1c is 6.9 this morning. Patient's blood glucose is elevated this morning at 225. We will increase the sliding scale and continue to monitor patient's blood glucose closely. Qualifiers: Diabetes mellitus type: type 2 Diabetes mellitus buttermaker helper insulin use: without buttermaker helper use Diabetes mellitus complication status: without complication Qualified Code(s): E11.9 - Type 2 diabetes mellitus without complications (6) Hyperlipidemia Conclusion/Plan: Stable continued on statin Qualifiers: Hyperlipidemia type: unspecified Qualified Code(s): E78.5 - Hyperlipidemia, unspecified (7) Hypothyroidism Conclusion/Plan: Patient's TSH is 0.54 Continue Synthroid Stable Qualifiers: Hypothyroidism type: unspecified Qualified Code(s): E03.9 - Hypothyroidism, unspecified - Current Meds Current Meds: Current Medications Generic Name Dose Route Start Last Admin Trade Name Freq PRN Reason Stop Dose Admin Acetaminophen 650 mg 02/10/18 16:46 02/10/18 21:13 Tylenol PO 650 mg Q4HR PRN Administration Pain 1 to 4 Albuterol 2.5 mg 02/10/18 16:59 02/11/18 07:37 INH 2.5 mg RTQ4H PRN Administration Wheezing Amlodipine Besylate 5 mg 02/10/18 21:00 02/11/18 08:01 Norvasc PO 5 mg BID BALAJI Administration Aspirin 81 mg 02/10/18 18:00 02/11/18 08:04 St Mehul Aspirin PO 81 mg DAILY BALAJI Administration Atorvastatin Calcium 10 mg 02/10/18 16:52 02/11/18 08:03 Lipitor PO 10 mg DAILY BALAJI Administration Carvedilol 25 mg 02/10/18 21:00 02/11/18 08:03 Coreg PO 25 mg BID BALAJI Administration Famotidine 20 mg 02/10/18 21:00 02/11/18 08:01 Pepcid PO 20 mg BID BALAJI Administration Fluconazole 100 mg 02/11/18 09:00 02/11/18 08:07 Diflucan PO 100 mg DAILY BALAJI Administration Sodium Chloride 1,000 mls @ 100 mls/hr 02/10/18 17:00 02/11/18 13:46 Normal Saline 0.9% IV 100 mls/hr .Q10H BALAJI Administration Insulin Aspart 1 - 5 unit 02/10/18 17:00 02/11/18 12:01 Novolog SUBQ 3 unit 0800,1200,1700,2100 BALAJI Administration Protocol Levothyroxine Sodium 150 mcg 02/10/18 18:00 02/11/18 08:02 Synthroid PO 150 mcg DAILY BALAJI Administration Losartan Potassium 50 mg 02/10/18 21:00 02/11/18 08:02 Cozaar PO 50 mg BID BALAJI Administration Magnesium Oxide 800 mg 02/10/18 21:00 02/11/18 08:02 Mag Ox PO 800 mg BID BALAJI Administration Polyethylene Glycol 17 gm 02/11/18 09:00 02/11/18 08:05 Miralax PO Not Given DAILY BALAJI Prednisone 40 mg 02/10/18 18:00 02/11/18 08:02 Deltasone PO 40 mg DAILYWM BALAJI Administration Multivit/Folic Acid/Iron 1 tab 02/10/18 19:00 02/11/18 08:01 Trinatal Rx 1 PO 1 tab DAILY BALAJI Administration Sodium Chloride 10 ml 02/10/18 17:00 02/11/18 08:05 Normal Saline Flush 0.9% IVP Not Given 0100,0900,1700 BALAJI Tacrolimus 1.5 mg 02/10/18 21:00 02/11/18 08:01 Prograf PO 1.5 mg BID BALAJI Administration - Lab Result Lab results reviewed: Yes Fish Bone Diagrams: 02/11/18 04:40 02/11/18 04:40 - Diagnostic Imaging Results Diagnostic Imaging Results: Final report reviewed - Additional Planning Condition/Complexity: Improved My Orders: My Active Orders 02/10/18 16:46 Activity Orders [RC] Routine Blood Glucose Checks - Eating [RC] 0800,1200,1700,2100 IO [RC] IOSHIFT Initiate Bowel Care Protocol [RC] .protocol Initiate Hypoglycemia Protocol [RC] .protocol Initiate Line Care Protocol [RC] .protocol Initiate Personal Care Protoco [RC] .protocol Oxygen Therapy [RC] .PRN Vital Signs [RC] Q4HR Acetaminophen [Tylenol] 650 mg PO Q4HR PRN HYDROcod/ACETAM 5/325 [[place] 5/325] 1 tab PO Q4HR PRN HYDROcodone/ACET 10/325 [[place] 10 mg/325 mg] 1 tab PO Q4HR PRN Ibuprofen [Motrin] 600 mg PO Q6HR PRN Morphine Inj (Carpuject) [Morphine (Carpuject)] 2 mg IVP Q2HR PRN Ondansetron Inj [Zofran Inj] 4 mg IVP Q6HR PRN Prochlorperazine Inj [Compazine Inj] 10 mg IVP Q6HR PRN Promethazine Inj [Phenergan Inj] 25 mg IM Q6HR PRN Sodium Chloride Flush 0.9% [Normal Saline Flush 0.9%] 10 ml IVP PRN PRN Zolpidem [Ambien] 5 mg PO QPM PRN Code Status [OTHERS] Routine Condition of Patient [OTHERS] Routine DVT Prophylaxis [OTHERS] Routine 02/10/18 16:48 SCDs [RC] QSHIFT 02/10/18 16:49 Evaluate and Treat PT [PT] Routine 02/10/18 16:52 Atorvastatin [Lipitor] 10 mg PO DAILY Fluticasone [Flonase] 1 sprays [place] PRN PRN 02/10/18 16:59 Albuterol 2.5 mg INH RTQ4H PRN 02/10/18 17:00 Insulin Aspart [NovoLOG] 1 - 5 unit SUBQ 0800,1200,1700,2100 Sodium Chloride 0.9% [Normal Saline 0.9%] 1,000 ml IV 100 mls/hr Sodium Chloride Flush 0.9% [Normal Saline Flush 0.9%] 10 ml IVP 0100,0900,1700 02/10/18 18:00 Aspirin Chewable [[facility] Mehul Aspirin] 81 mg PO DAILY Levothyroxine [Synthroid] 150 mcg PO DAILY predniSONE [Deltasone] 40 mg PO DAILYWM 02/10/18 18:19 RT [Nebulizer/MDI Tx.] [RC] .Q 4 PRN 02/10/18 19:00 Vitamin [Trinatal Rx 1] 1 tab PO DAILY 02/10/18 21:00 Carvedilol [Coreg] 25 mg PO BID Famotidine [Pepcid] 20 mg PO BID Losartan [Cozaar] 50 mg PO BID Magnesium Oxide [Mag Ox] 800 mg PO BID Tacrolimus [Prograf] 1.5 mg PO BID amLODIPine [Norvasc] 5 mg PO BID 02/11/18 09:00 Fluconazole [Diflucan] 100 mg PO DAILY Polyethylene Glycol 3350 [Miralax] 17 gm PO DAILY 02/11/18 13:46 Admit [Admit \ Transfer \ Status] [RC] .ONCE 02/11/18 13:47 Methocarbamol [Robaxin] 500 mg PO Q6HR PRN 02/11/18 Breakfast Carb-controlled Diet [DIET] Consult/Specialty: PT Plan Discussed with:: Patient Time Spent: 31-60 minutes Subjective - Subjective Patient Reports: Back Pain (Improving but still aggrevated with sitting up and walking around.), Other (No fevers or chills. No focal weakness or radiation of back pain. Patient does not have urinary or fecal incontinence this am.) Nursing Reports: No Complaints Objective Vital Signs: Vital Signs - 24 hr 02/10/18 02/10/18 02/10/18 15:33 17:04 18:17 Temperature 36.8 C Heart Rate 78 76 82 Heart Rate [ Activity] Heart Rate [ Monitoring electrodes] Respiratory 16 16 18 Rate Blood Pressure 158/93 H 166/99 H Blood Pressure [Right Brachial artery] O2 Saturation 96 100 O2 Saturation [ With Activity] 02/10/18 02/10/18 02/10/18 18:19 20:48 21:30 Temperature 37.0 C 38.1 C H 36.3 C L Heart Rate Heart Rate [ Activity] Heart Rate [ 81 80 Monitoring electrodes] Respiratory 20 18 Rate Blood Pressure Blood Pressure 162/92 H 165/89 H [Right Brachial artery] O2 Saturation 95 95 O2 Saturation [ With Activity] 02/11/18 02/11/18 02/11/18 00:16 04:48 07:40 Temperature 37.0 C 36.5 C 36.4 C L Heart Rate Heart Rate [ Activity] Heart Rate [ 69 65 65 Monitoring electrodes] Respiratory 18 18 16 Rate Blood Pressure Blood Pressure 157/89 H 140/97 H 159/89 H [Right Brachial artery] O2 Saturation 96 98 99 O2 Saturation [ With Activity] 02/11/18 02/11/18 12:26 12:28 Temperature 36.7 C Heart Rate Heart Rate [ 97 Activity] Heart Rate [ 71 Monitoring electrodes] Respiratory 15 Rate Blood Pressure Blood Pressure 141/80 H [Right Brachial artery] O2 Saturation 95 O2 Saturation [ 97 With Activity] Oxygen O2 Source [With Activity] Room air O2 Source Room air I&O (Last 24 Hrs): Intake and Output Totals x24h 02/09/18 02/10/18 02/11/18 23:59 23:59 23:59 Intake Total 1000 2743.333 Output Total 200 350 Balance 800 2393.333 General: Alert, Oriented x3, Cooperative, Mild distress (Back pain) HEENT: Atraumatic, PERRLA, EOMI, Mucous membr. moist/pink Neck: Supple, No JVD, No thyromegaly, +2 carotid pulse wo bruit, No LAD Lymphatic: no adenopathy Neuro: Alert, Non Focal, CN 2-12 Grossly Intact, Oriented Times 3 Cardiovascular: Regular rate, Normal S1, Normal S2, No murmurs Respiratory: Chest non-tender, No respiratory distress, Breath sounds nml, Wheezes Abdomen: Normal bowel sounds, Soft, No tenderness, No hepatospenomegaly Rectal: Other (Normal rectal tone) Extremities: No clubbing, No cyanosis, No edema, Normal pulses, Other (Muscle spasms in the lumbar paraspinal area to the left with pain on flexion of the spine.) Skin: No rashes, No breakdown - Results Results: Laboratory Results WBC 4.9 x10^3/uL (4.8-10.8) 02/11/18 04:40 RBC 4.81 10^6/uL (4.70-6.10) 02/11/18 04:40 Hgb 14.2 g/dL (14.0-18.0) 02/11/18 04:40 Hct 43.1 % (42.0-52.0) 02/11/18 04:40 MCV 89.6 fL (80.0-94.0) 02/11/18 04:40 MCH 29.5 pg (27.0-31.0) 02/11/18 04:40 MCHC 32.9 g/dL (32.0-36.0) 02/11/18 04:40 RDW 14.2 % (12.0-15.0) 02/11/18 04:40 Plt Count 169 10^3/uL (130-450) 02/11/18 04:40 MPV 9.7 fL (7.4-11.4) 02/11/18 04:40 Neut # (Auto) 4.1 10^3/uL (1.5-6.6) 02/11/18 04:40 Lymph # (Auto) 0.6 10^3/uL (1.5-3.5) L 02/11/18 04:40 [place] # (Auto) 0.1 10^3/uL (0.0-1.0) 02/11/18 04:40 Eos # (Auto) 0.0 10^3/uL (0.0-0.7) 02/11/18 04:40 Baso # (Auto) 0.0 10^3/uL (0.0-0.1) 02/11/18 04:40 Absolute Nucleated RBC 0.00 x10^3/uL 02/11/18 04:40 Nucleated RBC % 0.1 /100WBC 02/11/18 04:40 Sodium 138 mmol/L (135-145) 02/11/18 04:40 Potassium 4.1 mmol/L (3.5-5.0) 02/11/18 04:40 Chloride 112 mmol/L (101-111) H 02/11/18 04:40 Carbon Dioxide 22 mmol/L (21-32) 02/11/18 04:40 Anion Gap 4.0 (6-13) L 02/11/18 04:40 BUN 21 mg/dL (6-20) H 02/11/18 04:40 Creatinine 1.1 mg/dL (0.6-1.2) 02/11/18 04:40 Estimated GFR (MDRD) 66 (>89) L 02/11/18 04:40 Glucose 225 mg/dL (70-100) H 02/11/18 04:40 Glycated Hemoglobin 6.9 % (4.6-6.2) H 02/11/18 04:40 Estim Average Glucose 151 (70-100) H 02/11/18 04:40 Calcium 8.6 mg/dL (8.5-10.3) 02/11/18 04:40 Phosphorus 2.3 mg/dL (2.5-4.6) L 02/11/18 04:40 Magnesium 1.8 mg/dL (1.7-2.8) 02/11/18 04:40 Total Bilirubin 1.1 mg/dL (0.2-1.0) H 02/11/18 04:40 AST 12 IU/L (10-42) 02/11/18 04:40 ALT 14 IU/L (10-60) 02/11/18 04:40 Alkaline Phosphatase 76 IU/L (42-121) 02/11/18 04:40 Total Creatine Kinase 56 IU/L (22-269) 02/10/18 10:31 Troponin I < 0.04 ng/mL (<0.49) 02/10/18 10:31 Total Protein 5.6 g/dL (6.7-8.2) L 02/11/18 04:40 Albumin 3.3 g/dL (3.2-5.5) 02/11/18 04:40 Globulin 2.3 g/dL (2.1-4.2) 02/11/18 04:40 Albumin/Globulin Ratio 1.4 (1.0-2.2) 02/11/18 04:40 Lipase 49 U/L (22-51) 02/10/18 10:31 TSH 0.54 uIU/mL (0.34-5.60) 02/11/18 04:40 Urine Color DARK YELLOW 02/10/18 12:03 Urine Clarity CLEAR (CLEAR) 02/10/18 12:03 Urine pH 5.5 PH (5.0-7.5) 02/10/18 12:03 Ur Specific [place] >=1.030 (1.002-1.030) H 02/10/18 12:03 Urine Protein NEGATIVE mg/dL (NEGATIVE) 02/10/18 12:03 Urine Glucose (UA) NEGATIVE mg/dL (NEGATIVE) 02/10/18 12:03 Urine Ketones TRACE mg/dL (NEGATIVE) 02/10/18 12:03 Urine Occult Blood NEGATIVE (NEGATIVE) 02/10/18 12:03 Urine Nitrite NEGATIVE (NEGATIVE) 02/10/18 12:03 Urine Bilirubin NEGATIVE (NEGATIVE) 02/10/18 12:03 Urine Urobilinogen 0.2 (NORMAL) E.U./dL (NORMAL) 02/10/18 12:03 Ur Leukocyte Esterase NEGATIVE (NEGATIVE) 02/10/18 12:03 Ur Microscopic Review NOT INDICATED 02/10/18 12:03 Urine Culture Comments NOT INDICATED 02/10/18 12:03 - Procedures Procedures: Procedures INSPECTION OF LOWER INTESTINAL TRACT, ENDO (06/21/16) ABX Reporting Has patient been on IV antibiotics over the past 48 hours?: No Current Medications - Current Medications Current Medications: Active Medications Generic Name Dose Route Start Last Admin Trade Name Freq PRN Reason Stop Dose Admin Acetaminophen 650 mg 02/10/18 16:46 02/10/18 21:13 Tylenol PO 650 mg Q4HR PRN Administration Pain 1 to 4 Hydrocodone Bitart/Acetaminophen 1 tab 02/10/18 16:46 [place] 5/325 PO Q4HR PRN Pain 5 to 7 Hydrocodone Bitart/Acetaminophen 1 tab 02/10/18 16:46 [place] 10 Mg/325 Mg PO Q4HR PRN Pain 8 to 10 Albuterol 2.5 mg 02/10/18 16:59 02/11/18 07:37 INH 2.5 mg RTQ4H PRN Administration Wheezing Amlodipine Besylate 5 mg 02/10/18 21:00 02/11/18 08:01 Norvasc PO 5 mg BID BALAJI Administration Aspirin 81 mg 02/10/18 18:00 02/11/18 08:04 [facility] Mehul Aspirin PO 81 mg DAILY BALAJI Administration Atorvastatin Calcium 10 mg 02/10/18 16:52 02/11/18 08:03 Lipitor PO 10 mg DAILY BALAJI Administration Carvedilol 25 mg 02/10/18 21:00 02/11/18 08:03 Coreg PO 25 mg BID BALAJI Administration Famotidine 20 mg 02/10/18 21:00 02/11/18 08:01 Pepcid PO 20 mg BID BALAJI Administration Fluconazole 100 mg 02/11/18 09:00 02/11/18 08:07 Diflucan PO 100 mg DAILY BALAJI Administration Fluticasone Propionate 1 sprays 02/10/18 16:52 Flonase [place]TON PRN PRN Allergy Symptoms Sodium Chloride 1,000 mls @ 100 mls/hr 02/10/18 17:00 02/11/18 13:46 Normal Saline 0.9% IV 100 mls/hr .Q10H BALAJI Administration Ibuprofen 600 mg 02/10/18 16:46 Motrin PO Q6HR PRN Pain 1 to 4 Insulin Aspart 1 - 5 unit 02/10/18 17:00 02/11/18 12:01 Novolog SUBQ 3 unit 0800,1200,1700,2100 BALAJI Administration Protocol Levothyroxine Sodium 150 mcg 02/10/18 18:00 02/11/18 08:02 Synthroid PO 150 mcg DAILY BALAJI Administration Losartan Potassium 50 mg 02/10/18 21:00 02/11/18 08:02 Cozaar PO 50 mg BID BALAJI Administration Magnesium Oxide 800 mg 02/10/18 21:00 02/11/18 08:02 Mag Ox PO 800 mg BID BALAJI Administration Methocarbamol 500 mg 02/11/18 13:47 Robaxin PO Q6HR PRN Spasms Morphine Sulfate 2 mg 02/10/18 16:46 Morphine (Carpuject) IVP Q2HR PRN Pain 8 to 10 Ondansetron HCl 4 mg 02/10/18 16:46 Zofran Inj IVP Q6HR PRN Nausea / Vomiting Polyethylene Glycol 17 gm 02/11/18 09:00 02/11/18 08:05 Miralax PO Not Given DAILY BALAJI Prednisone 40 mg 02/10/18 18:00 02/11/18 08:02 Deltasone PO 40 mg DAILYWM BALAJI Administration Multivit/Folic Acid/Iron 1 tab 02/10/18 19:00 02/11/18 08:01 Trinatal Rx 1 PO 1 tab DAILY BALAJI Administration Prochlorperazine Edisylate 10 mg 02/10/18 16:46 Compazine Inj IVP Q6HR PRN Nausea / Vomiting Promethazine HCl 25 mg 02/10/18 16:46 Phenergan Inj IM Q6HR PRN Nausea / Vomiting Sodium Chloride 10 ml 02/10/18 16:46 Normal Saline Flush 0.9% IVP PRN PRN NEEDED PER PROVIDER ORDERS Sodium Chloride 10 ml 02/10/18 17:00 02/11/18 08:05 Normal Saline Flush 0.9% IVP Not Given 0100,0900,1700 [facility] Tacrolimus 1.5 mg 02/10/18 21:00 02/11/18 08:01 Prograf PO 1.5 mg BID BALAJI Administration Zolpidem Tartrate 5 mg 02/10/18 16:46 Ambien PO QPM PRN Insomnia Acetaminophen [Tylenol] 650 mg PO Q6H PRN 05/12/13 Aspirin Chewable [[facility] Mehul Aspirin] 81 mg PO DAILY 05/12/13 Fluconazole [Diflucan] 100 mg PO DAILY 05/12/13 Levothyroxine Sodium [Synthroid] 150 mcg PO DAILY 05/12/13 Omeprazole [Prilosec] 20 mg PO DAILY 05/12/13 Prednisone 5 mg PO DAILY 05/12/13 Simvastatin [Zocor] 10 mg PO DAILY 05/12/13 Albuterol 2.5 mg INH Q4H PRN 06/21/16 Carvedilol 25 mg PO BID 06/21/16 Fluticasone [Flonase] 1 sprays [place] PRN PRN 06/21/16 Glipizide 5 mg PO BID 06/21/16 Losartan [Cozaar] 50 mg PO BID 06/21/16 Magnesium Oxide 800 mg PO BID 06/21/16 Metformin HCl 1,000 mg PO BID 06/21/16 Pnv95/Ferrous Fumarate/FA [ Vitamin Tablet] 1 each PO DAILY 06/21/16 Tacrolimus 1.5 mg PO BID 06/21/16 amLODIPine [Norvasc] 5 mg PO BID 06/21/16
[2018-02-11] MEDS ORDERED: ZINC OXIDE 20% OINT 28.35 GM TUBE TOP PRN (17:34)
[2018-02-12] MEDS: SODIUM CHLORIDE 0.9% 1,000 ML IV SCH ×3 (02:34→20:52)
[2018-02-12] MEDS: SODIUM CHLORIDE FLUSH 0.9% 10 ML SYRINGE IVP SCH ×3 (02:35→16:36)
[2018-02-12] MEDS: ALBUTEROL NEB 2.5 MG/3 ML INH PRN ×2 (06:57→13:00)
[2018-02-12] MEDS: INSULIN ASPART 300 UNIT/3 ML PEN SUBQ SCH ×4 (08:01→20:54)
[2018-02-12] MEDS: TACROLIMUS 0.5 MG CAPSULE PO SCH ×2 (08:06→20:53)
[2018-02-12] MEDS: MAGNESIUM OXIDE 400 MG TABLET PO SCH ×2 (08:07→20:53)
[2018-02-12] MEDS: amLODIPine 5 MG TABLET PO SCH ×2 (08:08→20:52)
[2018-02-12] MEDS: ATORVASTATIN 10 MG TABLET PO SCH (08:08)
[2018-02-12] MEDS: LOSARTAN 50 MG TABLET PO SCH ×2 (08:08→20:53)
[2018-02-12] MEDS: FAMOTIDINE 20 MG TABLET PO SCH ×2 (08:08→20:53)
[2018-02-12] MEDS: predniSONE 20 MG TABLET PO SCH (08:08)
[2018-02-12] MEDS: LEVOTHYROXINE 75 MCG TABLET PO SCH (08:08)
[2018-02-12] MEDS: FLUCONAZOLE 100 MG TABLET PO SCH (08:08)
[2018-02-12] MEDS: CARVEDILOL 12.5 MG TABLET PO SCH ×2 (08:08→20:53)
[2018-02-12] MEDS: ASPIRIN CHEW 81 MG TABLET PO SCH (08:08)
[2018-02-12] MEDS: PRENATAL VITAMIN TABLET PO SCH (08:09)
[2018-02-12] MEDS: POLYETHYLENE GLYCOL 3350 17 GM PACKET PO SCH (08:10)
[2018-02-12] MEDS: AZITHROMYCIN 250 MG TABLET PO SCH (10:35)
--- NOTE | 2018-02-12 10:37 | PROVIDER PROGRESS NOTE ---
Assessment/Plan - Problem List (1) Campylobacter diarrhea Assessment/Plan: This morning patient was having fecal incontinence. He woke up with his bed soiled. He has had for bowel movements where he has been unable to make it to the bathroom. Given his history of intractable back pain and concern for possible cord compression we did consult with orthopedic surgery at [facility] where the patient has been treated before. I spoke with Dr. Maravilla who stated that it would be very unlikely that the patient had cord compression with symptoms that were occurring intermittently. The patient had full control of his bladder and his colon yesterday and this morning now has fecal incontinence. He believes likely that the incontinence he is experiencing this morning is due to his diarrheal illness. Normally Campylobacter diarrhea is not necessarily treated with antibiotics child jadyn given that the patient is immunosuppressed due to his renal transplant we will treat patient with antibiotics. Start azithromycin 500 mg daily for 3 days Patient will be given IV fluids and we will replace electrolytes Monitor symptoms closely as this can become severe in someone who is immunoco mpromise Patient likely got Campylobacter from his dog who was having diarrhea at home. (2) Intractable back pain Assessment/Plan: Today we became alarmed due to patient's fecal incontinence. It appears that this is secondary to diarrhea. I spoke with Dr. Maravilla who stated that it would be very unlikely that the patient had cord compression with symptoms that were occurring intermittently. The patient had full control of his bladder and his colon yesterday and this morning now has fecal incontinence. He believes likely that the incontinence he is experiencing this morning is due to his diarrheal illness. He did recommend an MRI on a nonurgent basis. He also recommended outpatient PT and follow-up with him in clinic. Patient will be continued on prednisone, Tylenol, Huger and morphine as needed. Patient will be given Robaxin instead of Valium for muscle spasms as the Valium made the patient very drowsy. The patient has severe osteoarthritis and listhesis of his vertebra and likely has facet impingement causing his symptoms. Order MRI of the lumbar spine for tomorrow (3) Weakness Conclusion/Plan: Resolved Patient did not have any focal weakness or lower extremity weakness his weakness was in his torso. (4) Chronic renal failure, stage 2 (mild) Conclusion/Plan: Patient has a history of renal transplant and is on immunosuppression We will continue the patient's immunosuppressive medications Creatinine is improved at 1.1. We will continue to avoid nephrotoxic agents and continue hydration. Repeat labs given ongoing diarrhea (5) Hypertension Conclusion/Plan: Blood pressure continues to be elevated this morning. He is on maximum dose Cozaar, amlodipine and Coreg. We will add hydralazine and continue to monitor patient's blood pressure. Qualifiers: Hypertension type: essential hypertension Qualified Code(s): I10 - Essential (primary) hypertension (6) Diabetes Conclusion/Plan: Patient's glipizide and metformin have been held and he is on a sliding scale insulin with a diabetic diet. Patient's hemoglobin A1c is 6.9 this morning. Patient's blood glucose is elevated this morning at 188 but improved from yesterday His BG maybe elevated due to ongoing infection Monitor closely Qualifiers: Diabetes mellitus type: type 2 Diabetes mellitus longterm insulin use: without longterm use Diabetes mellitus complication status: without complication Qualified Code(s): E11.9 - Type 2 diabetes mellitus without complications (7) Hyperlipidemia Conclusion/Plan: Stable continued on statin Qualifiers: Hyperlipidemia type: unspecified Qualified Code(s): E78.5 - Hyperlipidemia, unspecified (8) Hypothyroidism Conclusion/Plan: Patient's TSH is 0.54 Continue Synthroid Stable Qualifiers: Hypothyroidism type: unspecified Qualified Code(s): E03.9 - Hypothyroidism, unspecified - Current Meds Current Meds: Current Medications Generic Name Dose Route Start Last Admin Trade Name Freq PRN Reason Stop Dose Admin Acetaminophen 650 mg 02/10/18 16:46 02/10/18 21:13 Tylenol PO 650 mg Q4HR PRN Administration Pain 1 to 4 Albuterol 2.5 mg 02/10/18 16:59 02/12/18 06:57 INH 2.5 mg RTQ4H PRN Administration Wheezing Amlodipine Besylate 5 mg 02/10/18 21:00 02/12/18 08:08 Norvasc PO 5 mg BID BALAJI Administration Aspirin 81 mg 02/10/18 18:00 02/12/18 08:08 St Mehul Aspirin PO 81 mg DAILY BALAJI Administration Atorvastatin Calcium 10 mg 02/10/18 16:52 02/12/18 08:08 Lipitor PO 10 mg DAILY BALAJI Administration Carvedilol 25 mg 02/10/18 21:00 02/12/18 08:08 Coreg PO 25 mg BID BALAJI Administration Famotidine 20 mg 02/10/18 21:00 02/12/18 08:08 Pepcid PO 20 mg BID BALAJI Administration Fluconazole 100 mg 02/11/18 09:00 02/12/18 08:08 Diflucan PO 100 mg DAILY BALAJI Administration Sodium Chloride 1,000 mls @ 100 mls/hr 02/10/18 17:00 02/12/18 06:58 Normal Saline 0.9% IV 100 mls/hr .Q10H BALAJI Infusion Insulin Aspart 1 - 5 unit 02/10/18 17:00 02/12/18 08:01 Novolog SUBQ 2 unit 0800,1200,1700,2100 BALAJI Administration Protocol Levothyroxine Sodium 150 mcg 02/10/18 18:00 02/12/18 08:08 Synthroid PO 150 mcg DAILY BALAJI Administration Losartan Potassium 50 mg 02/10/18 21:00 02/12/18 08:08 Cozaar PO 50 mg BID BALAJI Administration Magnesium Oxide 800 mg 02/10/18 21:00 02/12/18 08:07 Mag Ox PO 800 mg BID BALAJI Administration Polyethylene Glycol 17 gm 02/11/18 09:00 02/12/18 08:10 Miralax PO Not Given DAILY BALAJI Prednisone 40 mg 02/10/18 18:00 02/12/18 08:08 Deltasone PO 40 mg DAILYWM BALAJI Administration Multivit/Folic Acid/Iron 1 tab 02/10/18 19:00 02/12/18 08:09 Trinatal Rx 1 PO 1 tab DAILY BALAJI Administration Sodium Chloride 10 ml 02/10/18 17:00 02/12/18 08:09 Normal Saline Flush 0.9% IVP Not Given 0100,0900,1700 BALAJI Tacrolimus 1.5 mg 02/10/18 21:00 02/12/18 08:06 Prograf PO 1.5 mg BID BALAJI Administration - Lab Result Lab results reviewed: Yes Fish Bone Diagrams: 02/11/18 04:40 02/11/18 04:40 - Diagnostic Imaging Results Diagnostic Imaging Results: Final report reviewed - Additional Planning Condition/Complexity: Guarded My Orders: My Active Orders 02/11/18 13:47 Methocarbamol [Robaxin] 500 mg PO Q6HR PRN 02/12/18 08:00 CULTURE, STOOL [RM] Stat NOROVIRUS RNA PCR STOOL [REFLAB] Stat OVA AND PARASITE [REFLAB] Stat PARASITE EIA GIARD/CRYPTOSP AG [REFLAB] Stat 02/12/18 10:00 Azithromycin [Zithromax] 500 mg PO DAILY Consult/Specialty: Other (Orthopedic Surgery) Plan Discussed with:: Patient Time Spent: 31-60 minutes Subjective - Subjective Patient Reports: Diarrhea (With incontinence.), Other (No fevers, chills or vomiting) Nursing Reports: Diarrhea Objective Vital Signs: Vital Signs - 24 hr 02/11/18 02/11/18 02/11/18 12:26 12:28 15:11 Temperature 36.7 C Heart Rate 94 Heart Rate [ 97 Activity] Heart Rate [ 71 Monitoring electrodes] Respiratory 15 20 Rate Blood Pressure 141/80 H [Right Brachial artery] O2 Saturation 95 O2 Saturation [ 97 With Activity] 02/11/18 02/11/18 02/12/18 15:46 19:21 00:04 Temperature 36.9 C 36.8 C 36.3 C L Heart Rate Heart Rate [ Activity] Heart Rate [ 73 72 67 Monitoring electrodes] Respiratory 19 19 20 Rate Blood Pressure 137/77 H 161/97 H 176/86 H [Right Brachial artery] O2 Saturation 94 96 98 O2 Saturation [ With Activity] 02/12/18 02/12/18 07:00 09:00 Temperature 36.5 C Heart Rate 74 Heart Rate [ Activity] Heart Rate [ 62 Monitoring electrodes] Respiratory 18 15 Rate Blood Pressure 175/99 H [Right Brachial artery] O2 Saturation 96 O2 Saturation [ With Activity] Oxygen O2 Source [With Activity] Room air O2 Source Room air I&O (Last 24 Hrs): Intake and Output Totals x24h 02/10/18 02/11/18 02/12/18 23:59 23:59 23:59 Intake Total 1000 3979.333 540 Output Total 200 350 250 Balance 800 3629.333 290 General: Alert, Oriented x3, Cooperative, Mild distress (Secondary to diarrhea) HEENT: Atraumatic, PERRLA, EOMI, Other (Dry mucus membranes) Neck: Supple, No JVD, No thyromegaly, +2 carotid pulse wo bruit, No LAD Lymphatic: no adenopathy Neuro: Alert, Non Focal, CN 2-12 Grossly Intact, Oriented Times 3 Cardiovascular: Regular rate, Normal S1, Normal S2, No murmurs Respiratory: Chest non-tender, No respiratory distress, Breath sounds nml Abdomen: Other (Hyperactive bowel sounds, mild tenderness on exam.) Extremities: No clubbing, No cyanosis, No edema, Normal pulses, Other (Improved ROM of the spine.) Skin: No rashes, No breakdown - Results Results: Laboratory Results WBC 4.9 x10^3/uL (4.8-10.8) 02/11/18 04:40 RBC 4.81 10^6/uL (4.70-6.10) 02/11/18 04:40 Hgb 14.2 g/dL (14.0-18.0) 02/11/18 04:40 Hct 43.1 % (42.0-52.0) 02/11/18 04:40 MCV 89.6 fL (80.0-94.0) 02/11/18 04:40 MCH 29.5 pg (27.0-31.0) 02/11/18 04:40 MCHC 32.9 g/dL (32.0-36.0) 02/11/18 04:40 RDW 14.2 % (12.0-15.0) 02/11/18 04:40 Plt Count 169 10^3/uL (130-450) 02/11/18 04:40 MPV 9.7 fL (7.4-11.4) 02/11/18 04:40 Neut # (Auto) 4.1 10^3/uL (1.5-6.6) 02/11/18 04:40 Lymph # (Auto) 0.6 10^3/uL (1.5-3.5) L 02/11/18 04:40 Evangeline # (Auto) 0.1 10^3/uL (0.0-1.0) 02/11/18 04:40 Eos # (Auto) 0.0 10^3/uL (0.0-0.7) 02/11/18 04:40 Baso # (Auto) 0.0 10^3/uL (0.0-0.1) 02/11/18 04:40 Absolute Nucleated RBC 0.00 x10^3/uL 02/11/18 04:40 Nucleated RBC % 0.1 /100WBC 02/11/18 04:40 Sodium 138 mmol/L (135-145) 02/11/18 04:40 Potassium 4.1 mmol/L (3.5-5.0) 02/11/18 04:40 Chloride 112 mmol/L (101-111) H 02/11/18 04:40 Carbon Dioxide 22 mmol/L (21-32) 02/11/18 04:40 Anion Gap 4.0 (6-13) L 02/11/18 04:40 BUN 21 mg/dL (6-20) H 02/11/18 04:40 Creatinine 1.1 mg/dL (0.6-1.2) 02/11/18 04:40 Estimated GFR (MDRD) 66 (>89) L 02/11/18 04:40 Glucose 225 mg/dL (70-100) H 02/11/18 04:40 Glycated Hemoglobin 6.9 % (4.6-6.2) H 02/11/18 04:40 Estim Average Glucose 151 (70-100) H 02/11/18 04:40 Calcium 8.6 mg/dL (8.5-10.3) 02/11/18 04:40 Phosphorus 2.3 mg/dL (2.5-4.6) L 02/11/18 04:40 Magnesium 1.8 mg/dL (1.7-2.8) 02/11/18 04:40 Total Bilirubin 1.1 mg/dL (0.2-1.0) H 02/11/18 04:40 AST 12 IU/L (10-42) 02/11/18 04:40 ALT 14 IU/L (10-60) 02/11/18 04:40 Alkaline Phosphatase 76 IU/L (42-121) 02/11/18 04:40 Total Creatine Kinase 56 IU/L (22-269) 02/10/18 10:31 Troponin I < 0.04 ng/mL (<0.49) 02/10/18 10:31 Total Protein 5.6 g/dL (6.7-8.2) L 02/11/18 04:40 Albumin 3.3 g/dL (3.2-5.5) 02/11/18 04:40 Globulin 2.3 g/dL (2.1-4.2) 02/11/18 04:40 Albumin/Globulin Ratio 1.4 (1.0-2.2) 02/11/18 04:40 Lipase 49 U/L (22-51) 02/10/18 10:31 TSH 0.54 uIU/mL (0.34-5.60) 02/11/18 04:40 Urine Color DARK YELLOW 02/10/18 12:03 Urine Clarity CLEAR (CLEAR) 02/10/18 12:03 Urine pH 5.5 PH (5.0-7.5) 02/10/18 12:03 Ur Specific Salome >=1.030 (1.002-1.030) H 02/10/18 12:03 Urine Protein NEGATIVE mg/dL (NEGATIVE) 02/10/18 12:03 Urine Glucose (UA) NEGATIVE mg/dL (NEGATIVE) 02/10/18 12:03 Urine Ketones TRACE mg/dL (NEGATIVE) 02/10/18 12:03 Urine Occult Blood NEGATIVE (NEGATIVE) 02/10/18 12:03 Urine Nitrite NEGATIVE (NEGATIVE) 02/10/18 12:03 Urine Bilirubin NEGATIVE (NEGATIVE) 02/10/18 12:03 Urine Urobilinogen 0.2 (NORMAL) E.U./dL (NORMAL) 02/10/18 12:03 Ur Leukocyte Esterase NEGATIVE (NEGATIVE) 02/10/18 12:03 Ur Microscopic Review NOT INDICATED 02/10/18 12:03 Urine Culture Comments NOT INDICATED 02/10/18 12:03 Stool Leukocytes, Qual POSITIVE (Negative) 02/12/18 08:00 - Procedures Procedures: Procedures INSPECTION OF LOWER INTESTINAL TRACT, ENDO (06/21/16) ABX Reporting Has patient been on IV antibiotics over the past 48 hours?: No Current Medications - Current Medications Current Medications: Active Medications Generic Name Dose Route Start Last Admin Trade Name Freq PRN Reason Stop Dose Admin Acetaminophen 650 mg 02/10/18 16:46 02/10/18 21:13 Tylenol PO 650 mg Q4HR PRN Administration Pain 1 to 4 Hydrocodone Bitart/Acetaminophen 1 tab 02/10/18 16:46 Huger 5/325 PO Q4HR PRN Pain 5 to 7 Hydrocodone Bitart/Acetaminophen 1 tab 02/10/18 16:46 Huger 10 Mg/325 Mg PO Q4HR PRN Pain 8 to 10 Albuterol 2.5 mg 02/10/18 16:59 02/12/18 06:57 INH 2.5 mg RTQ4H PRN Administration Wheezing Amlodipine Besylate 5 mg 02/10/18 21:00 02/12/18 08:08 Norvasc PO 5 mg BID BALAJI Administration Aspirin 81 mg 02/10/18 18:00 02/12/18 08:08 St Mehul Aspirin PO 81 mg DAILY BALAJI Administration Atorvastatin Calcium 10 mg 02/10/18 16:52 02/12/18 08:08 Lipitor PO 10 mg DAILY BALAJI Administration Azithromycin 500 mg 02/12/18 10:00 02/12/18 10:35 Zithromax PO 02/15/18 09:59 500 mg DAILY BALAJI Administration Carvedilol 25 mg 02/10/18 21:00 02/12/18 08:08 Coreg PO 25 mg BID BALAJI Administration Famotidine 20 mg 02/10/18 21:00 02/12/18 08:08 Pepcid PO 20 mg BID BALAJI Administration Fluconazole 100 mg 02/11/18 09:00 02/12/18 08:08 Diflucan PO 100 mg DAILY BALAJI Administration Fluticasone Propionate 1 sprays 02/10/18 16:52 Flonase COLTON PRN PRN Allergy Symptoms Hydralazine HCl 25 mg 02/12/18 11:00 Apresoline PO QID BALAJI Sodium Chloride 1,000 mls @ 100 mls/hr 02/10/18 17:00 02/12/18 06:58 Normal Saline 0.9% IV 100 mls/hr .Q10H BALAJI Infusion Ibuprofen 600 mg 02/10/18 16:46 Motrin PO Q6HR PRN Pain 1 to 4 Insulin Aspart 1 - 5 unit 02/10/18 17:00 02/12/18 08:01 Novolog SUBQ 2 unit 0800,1200,1700,2100 BALAJI Administration Protocol Levothyroxine Sodium 150 mcg 02/10/18 18:00 02/12/18 08:08 Synthroid PO 150 mcg DAILY BALAJI Administration Losartan Potassium 50 mg 02/10/18 21:00 02/12/18 08:08 Cozaar PO 50 mg BID BALAJI Administration Magnesium Oxide 800 mg 02/10/18 21:00 02/12/18 08:07 Mag Ox PO 800 mg BID BALAJI Administration Methocarbamol 500 mg 02/11/18 13:47 Robaxin PO Q6HR PRN Spasms Morphine Sulfate 2 mg 02/10/18 16:46 Morphine (Carpuject) IVP Q2HR PRN Pain 8 to 10 Ondansetron HCl 4 mg 02/10/18 16:46 Zofran Inj IVP Q6HR PRN Nausea / Vomiting Polyethylene Glycol 17 gm 02/11/18 09:00 02/12/18 08:10 Miralax PO Not Given DAILY BALAJI Prednisone 40 mg 02/10/18 18:00 02/12/18 08:08 Deltasone PO 40 mg DAILYWM BALAJI Administration Multivit/Folic Acid/Iron 1 tab 02/10/18 19:00 02/12/18 08:09 Trinatal Rx 1 PO 1 tab DAILY BALAJI Administration Prochlorperazine Edisylate 10 mg 02/10/18 16:46 Compazine Inj IVP Q6HR PRN Nausea / Vomiting Promethazine HCl 25 mg 02/10/18 16:46 Phenergan Inj IM Q6HR PRN Nausea / Vomiting Sodium Chloride 10 ml 02/10/18 16:46 Normal Saline Flush 0.9% IVP PRN PRN NEEDED PER PROVIDER ORDERS Sodium Chloride 10 ml 02/10/18 17:00 02/12/18 08:09 Normal Saline Flush 0.9% IVP Not Given 0100,0900,1700 [facility] Tacrolimus 1.5 mg 02/10/18 21:00 02/12/18 08:06 Prograf PO 1.5 mg BID BALAJI Administration Zolpidem Tartrate 5 mg 02/10/18 16:46 Ambien PO QPM PRN Insomnia Acetaminophen [Tylenol] 650 mg PO Q6H PRN 05/12/13 Aspirin Chewable [St Mehul Aspirin] 81 mg PO DAILY 05/12/13 Fluconazole [Diflucan] 100 mg PO DAILY 05/12/13 Levothyroxine Sodium [Synthroid] 150 mcg PO DAILY 05/12/13 Omeprazole [Prilosec] 20 mg PO DAILY 05/12/13 Prednisone 5 mg PO DAILY 05/12/13 Simvastatin [Zocor] 10 mg PO DAILY 05/12/13 Albuterol 2.5 mg INH Q4H PRN 06/21/16 Carvedilol 25 mg PO BID 06/21/16 Fluticasone [Flonase] 1 sprays COLTON PRN PRN 06/21/16 Glipizide 5 mg PO BID 06/21/16 Losartan [Cozaar] 50 mg PO BID 06/21/16 Magnesium Oxide 800 mg PO BID 06/21/16 Metformin HCl 1,000 mg PO BID 06/21/16 Pnv95/Ferrous Fumarate/FA [ Vitamin Tablet] 1 each PO DAILY 06/21/16 Tacrolimus 1.5 mg PO BID 06/21/16 amLODIPine [Norvasc] 5 mg PO BID 06/21/16
[2018-02-12 11:26] LABS: BASOPHILS % (AUTO) 0.3 %; EOSINOPHILS % (AUTO) 0.4 %; HGB - HEMOGLOBIN 13.5 g/dL (14.0-18.0); LYMPHOCYTES # (AUTO) 0.7 10^3/uL (1.5-3.5); LYMPHOCYTES % (AUTO) 10.3 %; MEAN CORPUSCULAR HEMOGLOBIN 29.8 pg (27.0-31.0); MEAN CORPUSCULAR HGB CONC 34.2 g/dL (32.0-36.0); MONOCYTES # (AUTO) 0.4 10^3/uL (0.0-1.0); MONOCYTES % (AUTO) 5.6 %; NEUTROPHILS # (AUTO) 6.1 10^3/uL (1.5-6.6); NEUTROPHILS % (AUTO) 83.4 %; PLT - PLATELET COUNT 177 10^3/uL (130-450); RED BLOOD COUNT 4.55 10^6/uL (4.70-6.10); RED CELL DISTRIBUTION WIDTH 14.1 % (12.0-15.0); WHITE BLOOD COUNT 7.3 x10^3/uL (4.8-10.8)
[2018-02-12 11:39] LABS: ALBUMIN 3.4 g/dL (3.2-5.5); ALBUMIN/GLOBULIN RATIO 1.4 (1.0-2.2); ALKALINE PHOSPHATASE 69 IU/L (42-121); ALT ALANINE AMINOTRANSFERASE 13 IU/L (10-60); AST ASPARTATE AMINOTRANSFERASE 13 IU/L (10-42); BILIRUBIN,TOTAL 0.6 mg/dL (0.2-1.0); BUN - BLOOD UREA NITROGEN 21 mg/dL (6-20); CALCIUM 9.2 mg/dL (8.5-10.3); CARBON DIOXIDE - CO2 20 mmol/L (21-32); CHLORIDE 110 mmol/L (101-111); CREATININE 1.1 mg/dL (0.6-1.2); GFR - MDRD 66 (>89); GLUCOSE 184 mg/dL (70-100); MAGNESIUM 2.1 mg/dL (1.7-2.8); PHOSPHORUS 1.6 mg/dL (2.5-4.6); SODIUM 139 mmol/L (135-145); TOTAL PROTEIN 5.8 g/dL (6.7-8.2)
[2018-02-12] MEDS: hydrALAZINE 25 MG TABLET PO SCH ×4 (11:50→20:53)
[2018-02-12] MEDS ORDERED: NEUTRA-PHOS 250 MG TABLET PO SCH (17:00)
[2018-02-13] MEDS: SODIUM CHLORIDE FLUSH 0.9% 10 ML SYRINGE IVP SCH ×3 (03:03→16:56)
[2018-02-13] MEDS: SODIUM CHLORIDE FLUSH 0.9% 10 ML SYRINGE IVP PRN ×2 (04:49→04:51)
[2018-02-13 05:19] LABS: BASOPHILS # (AUTO) 0.1 10^3/uL (0.0-0.1); BASOPHILS % (AUTO) 1.2 %; EOSINOPHILS # (AUTO) 0.1 10^3/uL (0.0-0.7); EOSINOPHILS % (AUTO) 1.6 %; HGB - HEMOGLOBIN 13.8 g/dL (14.0-18.0); LYMPHOCYTES # (AUTO) 1.2 10^3/uL (1.5-3.5); LYMPHOCYTES % (AUTO) 16.1 %; MEAN CORPUSCULAR HEMOGLOBIN 29.7 pg (27.0-31.0); MEAN CORPUSCULAR HGB CONC 33.7 g/dL (32.0-36.0); MEAN CORPUSCULAR VOLUME 88.2 fL (80.0-94.0); MONOCYTES # (AUTO) 0.8 10^3/uL (0.0-1.0); MONOCYTES % (AUTO) 10.6 %; NEUTROPHILS # (AUTO) 5.4 10^3/uL (1.5-6.6); NEUTROPHILS % (AUTO) 70.5 %; PLT - PLATELET COUNT 178 10^3/uL (130-450); RED BLOOD COUNT 4.65 10^6/uL (4.70-6.10); RED CELL DISTRIBUTION WIDTH 14.1 % (12.0-15.0); WHITE BLOOD COUNT 7.7 x10^3/uL (4.8-10.8)
[2018-02-13 05:27] LABS: ALBUMIN 3.5 g/dL (3.2-5.5); ALBUMIN/GLOBULIN RATIO 1.4 (1.0-2.2); ALKALINE PHOSPHATASE 67 IU/L (42-121); ALT ALANINE AMINOTRANSFERASE 14 IU/L (10-60); AST ASPARTATE AMINOTRANSFERASE 11 IU/L (10-42); BILIRUBIN,TOTAL 0.7 mg/dL (0.2-1.0); BUN - BLOOD UREA NITROGEN 17 mg/dL (6-20); CALCIUM 9.1 mg/dL (8.5-10.3); CARBON DIOXIDE - CO2 21 mmol/L (21-32); CHLORIDE 111 mmol/L (101-111); GFR - MDRD 74 (>89); GLUCOSE 155 mg/dL (70-100); PHOSPHORUS 2.1 mg/dL (2.5-4.6); SODIUM 138 mmol/L (135-145)
[2018-02-13] MEDS ORDERED: NEUTRA-PHOS 250 MG TABLET PO SCH (07:00)
[2018-02-13] MEDS: ALBUTEROL NEB 2.5 MG/3 ML INH PRN ×2 (09:24→20:07)
[2018-02-13] MEDS: predniSONE 20 MG TABLET PO SCH (10:13)
[2018-02-13] MEDS: MAGNESIUM OXIDE 400 MG TABLET PO SCH ×2 (10:13→20:58)
[2018-02-13] MEDS: hydrALAZINE 25 MG TABLET PO SCH ×4 (10:14→20:57)
[2018-02-13] MEDS: LEVOTHYROXINE 75 MCG TABLET PO SCH (10:14)
[2018-02-13] MEDS: CARVEDILOL 12.5 MG TABLET PO SCH ×2 (10:14→20:58)
[2018-02-13] MEDS: ATORVASTATIN 10 MG TABLET PO SCH (10:14)
[2018-02-13] MEDS: FAMOTIDINE 20 MG TABLET PO SCH ×3 (10:14→22:56)
[2018-02-13] MEDS: amLODIPine 5 MG TABLET PO SCH ×2 (10:14→20:58)
[2018-02-13] MEDS: AZITHROMYCIN 250 MG TABLET PO SCH (10:14)
[2018-02-13] MEDS: PRENATAL VITAMIN TABLET PO SCH (10:14)
[2018-02-13] MEDS: ASPIRIN CHEW 81 MG TABLET PO SCH (10:14)
[2018-02-13] MEDS: FLUCONAZOLE 100 MG TABLET PO SCH (10:15)
[2018-02-13] MEDS: LOSARTAN 50 MG TABLET PO SCH ×2 (10:15→20:57)
[2018-02-13] MEDS: PANTOPRAZOLE 40 MG TABLET PO SCH (10:15)
[2018-02-13] MEDS: NEUTRA-PHOS 250 MG TABLET PO SCH ×3 (10:15→16:55)
[2018-02-13] MEDS: INSULIN ASPART 300 UNIT/3 ML PEN SUBQ SCH ×4 (10:19→21:04)
[2018-02-13] MEDS: POLYETHYLENE GLYCOL 3350 17 GM PACKET PO SCH (10:20)
[2018-02-13] MEDS: TACROLIMUS 0.5 MG CAPSULE PO SCH ×2 (11:39→20:57)
[2018-02-13] MEDS: SODIUM CHLORIDE 0.9% 1,000 ML IV SCH ×2 (12:28→17:24)
--- NOTE | 2018-02-13 14:45 | PROVIDER PROGRESS NOTE ---
Assessment/Plan - Problem List (1) Campylobacter diarrhea Assessment/Plan: Patient woke up incontinent of stool on 01/3018. He woke up with his bed soiled. He has had for bowel movements where he has been unable to make it to the bathroom. Given his history of intractable back pain and concern for possi ble cord compression we did consult with orthopedic surgery at [facility] where the patient has been treated before. I spoke with Dr. Maravilla who stated that it would be very unlikely that the patient had cord compression with symptoms that were occurring intermittently. He believes likely that the incontinence he is experiencing is due to his diarrheal illness. Normally Campylobacter diarrhea is not necessarily treated with antibiotics however given that the patient is immunosuppressed due to his renal transplant we will treat patient with antibiotics. Started azithromycin 500 mg daily day 2 of 3 Patient continues to have severe diarrhea. He was incontinent of stool for the most part therefore it is difficult to monitor exactly how many episodes he had. But the patient states he had over 10 episodes yesterday and again today he started off having 3 episodes of diarrhea. Given that the patient's diarrhea is not improving we will continue antibiotics, IV fluids and electrolyte replacement and keep patient for an additional day given his immunocompromise state. (2) Intractable back pain Assessment/Plan: Today we became alarmed due to patient's fecal incontinence. It appears that this is secondary to diarrhea. I spoke with Dr. Maravilla who stated that it would be very unlikely that the patient had cord compression with symptoms that were occurring intermittently. The patient had full control of his bladder and his colon yesterday and this morning now has fecal incontinence. He believes likely that the incontinence he is experiencing this morning is due to his diarrheal illness. He did recommend an MRI on a nonurgent basis. He also recommended outpatient PT and follow-up with him in clinic. Patient will be continued on prednisone, Tylenol, [place], Robaxin and morphine as needed. The patient has severe osteoarthritis and listhesis of his vertebra and likely has facet impingement causing his symptoms. MRI of the lumbar spine is pending (3) Weakness Conclusion/Plan: Resolved Patient did not have any focal weakness or lower extremity weakness his weakness was in his torso. (4) Chronic renal failure, stage 2 (mild) Conclusion/Plan: Patient has a history of renal transplant and is on immunosuppression We will continue the patient's immunosuppressive medications Creatinine is improved at 1.0. We will continue to avoid nephrotoxic agents and continue hydration. Replace phosphorus Monitor creatinine closely (5) Hypertension Conclusion/Plan: Blood pressure continues to be elevated this morning. He is on maximum dose Cozaar, amlodipine and Coreg. We added hydralazine yesterday the patient's blood pressure continues to be elevated. I will increase the patient's dose of hydralazine. Qualifiers: Hypertension type: essential hypertension Qualified Code(s): I10 - Essential (primary) hypertension (6) Diabetes Conclusion/Plan: Patient's glipizide and metformin have been held and he is on a sliding scale insulin with a diabetic diet. Patient's hemoglobin A1c is 6.9 this morning. Blood glucose improved this morning with blood sugar of 155. Monitor closely Qualifiers: Diabetes mellitus type: type 2 Diabetes mellitus terminal makeup operator insulin use: without terminal makeup operator use Diabetes mellitus complication status: without complication Qualified Code(s): E11.9 - Type 2 diabetes mellitus without complications (7) Hyperlipidemia Conclusion/Plan: Stable continued on statin Qualifiers: Hyperlipidemia type: unspecified Qualified Code(s): E78.5 - Hyperlipidemia, unspecified (8) Hypothyroidism Conclusion/Plan: Patient's TSH is 0.54 Continue Synthroid Stable Qualifiers: Hypothyroidism type: unspecified Qualified Code(s): E03.9 - Hypothyroidism, unspecified - Current Meds Current Meds: Current Medications Generic Name Dose Route Start Last Admin Trade Name Freq PRN Reason Stop Dose Admin Acetaminophen 650 mg 02/10/18 16:46 02/10/18 21:13 Tylenol PO 650 mg Q4HR PRN Administration Pain 1 to 4 Albuterol 2.5 mg 02/10/18 16:59 02/13/18 09:24 INH 2.5 mg RTQ4H PRN Administration Wheezing Amlodipine Besylate 5 mg 02/10/18 21:00 02/13/18 10:14 Norvasc PO 5 mg BID BALAJI Administration Aspirin 81 mg 02/10/18 18:00 02/13/18 10:14 St Mehul Aspirin PO 81 mg DAILY BALAJI Administration Atorvastatin Calcium 10 mg 02/10/18 16:52 02/13/18 10:14 Lipitor PO 10 mg DAILY BALAJI Administration Azithromycin 500 mg 02/12/18 10:00 02/13/18 10:14 Zithromax PO 02/15/18 09:59 500 mg DAILY BALAJI Administration Carvedilol 25 mg 02/10/18 21:00 02/13/18 10:14 Coreg PO 25 mg BID BALAJI Administration Famotidine 20 mg 02/10/18 21:00 02/13/18 10:14 Pepcid PO 20 mg BID BALAJI Administration Fluconazole 100 mg 02/11/18 09:00 02/13/18 10:15 Diflucan PO 100 mg DAILY BALAJI Administration Hydralazine HCl 25 mg 02/12/18 11:00 02/13/18 12:32 Apresoline PO 25 mg QID BALAJI Administration Sodium Chloride 1,000 mls @ 100 mls/hr 02/10/18 17:00 02/13/18 12:28 Normal Saline 0.9% IV 100 mls/hr .Q10H BALAJI Administration Insulin Aspart 2 - 10 unit 02/13/18 08:00 02/13/18 12:28 Novolog SUBQ Not Given 0800,1200,1700,2100 [facility] Protocol Levothyroxine Sodium 150 mcg 02/13/18 07:00 02/13/18 10:14 Synthroid PO 150 mcg DAILY@0700 BALAJI Administration Losartan Potassium 50 mg 02/10/18 21:00 02/13/18 10:15 Cozaar PO 50 mg BID BALAJI Administration Magnesium Oxide 800 mg 02/10/18 21:00 02/13/18 10:13 Mag Ox PO 800 mg BID BALAJI Administration Ondansetron HCl 4 mg 02/10/18 16:46 02/13/18 04:49 Zofran Inj IVP 4 mg Q6HR PRN Administration Nausea / Vomiting Pantoprazole Sodium 40 mg 02/13/18 07:15 02/13/18 10:15 Protonix PO 40 mg QDAC BALAJI Administration Polyethylene Glycol 17 gm 02/11/18 09:00 02/13/18 10:20 Miralax PO Not Given DAILY BALAJI Prednisone 40 mg 02/10/18 18:00 02/13/18 10:13 Deltasone PO 40 mg DAILYWM BALAJI Administration Multivit/Folic Acid/Iron 1 tab 02/10/18 19:00 02/13/18 10:14 Trinatal Rx 1 PO 1 tab DAILY BALAJI Administration Sodium Chloride 10 ml 02/10/18 16:46 02/13/18 04:51 Normal Saline Flush 0.9% IVP 10 ml PRN PRN Administration NEEDED PER PROVIDER ORDERS Sodium Chloride 10 ml 02/10/18 17:00 02/13/18 10:19 Normal Saline Flush 0.9% IVP Not Given 0100,0900,1700 BALAJI Sodium Phosphate 250 mg 02/13/18 09:00 02/13/18 12:32 K-Phos Neutral PO 250 mg TIDWM@0900,1200,1700 BALAJI Administration Tacrolimus 1.5 mg 02/10/18 21:00 02/13/18 11:39 Prograf PO 1.5 mg BID BALAJI Administration - Lab Result Lab results reviewed: Yes Fish Bone Diagrams: 02/13/18 05:05 02/13/18 05:05 Other Lab Results: Laboratory Results WBC 7.7 x10^3/uL (4.8-10.8) 02/13/18 05:05 RBC 4.65 10^6/uL (4.70-6.10) L 02/13/18 05:05 Hgb 13.8 g/dL (14.0-18.0) L 02/13/18 05:05 Hct 41.1 % (42.0-52.0) L 02/13/18 05:05 MCV 88.2 fL (80.0-94.0) 02/13/18 05:05 MCH 29.7 pg (27.0-31.0) 02/13/18 05:05 MCHC 33.7 g/dL (32.0-36.0) 02/13/18 05:05 RDW 14.1 % (12.0-15.0) 02/13/18 05:05 Plt Count 178 10^3/uL (130-450) 02/13/18 05:05 MPV 9.0 fL (7.4-11.4) 02/13/18 05:05 Neut # (Auto) 5.4 10^3/uL (1.5-6.6) 02/13/18 05:05 Lymph # (Auto) 1.2 10^3/uL (1.5-3.5) L 02/13/18 05:05 [place] # (Auto) 0.8 10^3/uL (0.0-1.0) 02/13/18 05:05 Eos # (Auto) 0.1 10^3/uL (0.0-0.7) 02/13/18 05:05 Baso # (Auto) 0.1 10^3/uL (0.0-0.1) 02/13/18 05:05 Absolute Nucleated RBC 0.00 x10^3/uL 02/13/18 05:05 Nucleated RBC % 0.0 /100WBC 02/13/18 05:05 Sodium 138 mmol/L (135-145) 02/13/18 05:05 Potassium 3.7 mmol/L (3.5-5.0) 02/13/18 05:05 Chloride 111 mmol/L (101-111) 02/13/18 05:05 Carbon Dioxide 21 mmol/L (21-32) 02/13/18 05:05 Anion Gap 6.0 (6-13) 02/13/18 05:05 BUN 17 mg/dL (6-20) 02/13/18 05:05 Creatinine 1.0 mg/dL (0.6-1.2) 02/13/18 05:05 Estimated GFR (MDRD) 74 (>89) L 02/13/18 05:05 Glucose 155 mg/dL (70-100) H 02/13/18 05:05 Glycated Hemoglobin 6.9 % (4.6-6.2) H 02/11/18 04:40 Estim Average Glucose 151 (70-100) H 02/11/18 04:40 Calcium 9.1 mg/dL (8.5-10.3) 02/13/18 05:05 Ionized Calcium NO 02/13/18 05:05 Phosphorus 2.1 mg/dL (2.5-4.6) L 02/13/18 05:05 Magnesium 2.0 mg/dL (1.7-2.8) 02/13/18 05:05 Total Bilirubin 0.7 mg/dL (0.2-1.0) 02/13/18 05:05 AST 11 IU/L (10-42) 02/13/18 05:05 ALT 14 IU/L (10-60) 02/13/18 05:05 Alkaline Phosphatase 67 IU/L (42-121) 02/13/18 05:05 Total Creatine Kinase 56 IU/L (22-269) 02/10/18 10:31 Troponin I < 0.04 ng/mL (<0.49) 02/10/18 10:31 Total Protein 6.0 g/dL (6.7-8.2) L 02/13/18 05:05 Albumin 3.5 g/dL (3.2-5.5) 02/13/18 05:05 Globulin 2.5 g/dL (2.1-4.2) 02/13/18 05:05 Albumin/Globulin Ratio 1.4 (1.0-2.2) 02/13/18 05:05 Lipase 49 U/L (22-51) 02/10/18 10:31 TSH 0.54 uIU/mL (0.34-5.60) 02/11/18 04:40 Urine Color DARK YELLOW 02/10/18 12:03 Urine Clarity CLEAR (CLEAR) 02/10/18 12:03 Urine pH 5.5 PH (5.0-7.5) 02/10/18 12:03 Ur Specific [place] >=1.030 (1.002-1.030) H 02/10/18 12:03 Urine Protein NEGATIVE mg/dL (NEGATIVE) 02/10/18 12:03 Urine Glucose (UA) NEGATIVE mg/dL (NEGATIVE) 02/10/18 12:03 Urine Ketones TRACE mg/dL (NEGATIVE) 02/10/18 12:03 Urine Occult Blood NEGATIVE (NEGATIVE) 02/10/18 12:03 Urine Nitrite NEGATIVE (NEGATIVE) 02/10/18 12:03 Urine Bilirubin NEGATIVE (NEGATIVE) 02/10/18 12:03 Urine Urobilinogen 0.2 (NORMAL) E.U./dL (NORMAL) 02/10/18 12:03 Ur Leukocyte Esterase NEGATIVE (NEGATIVE) 02/10/18 12:03 Ur Microscopic Review NOT INDICATED 02/10/18 12:03 Urine Culture Comments NOT INDICATED 02/10/18 12:03 Stool Leukocytes, Qual POSITIVE (Negative) 02/12/18 08:00 - Diagnostic Imaging Results Diagnostic Imaging Results: Final report reviewed - Additional Planning Condition/Complexity: Guarded My Orders: My Active Orders 02/14/18 05:00 CBC - COMP BLD CT W/AUTO DIFF [HEME] DAILYLAB CMP, RFLX TO IONIZED CA IF [CHEM] DAILYLAB MAGNESIUM [CHEM] DAILYLAB PHOSPHORUS [CHEM] DAILYLAB 02/12/18 13:44 Home CPAP/BiPAP [RC] .ONCE 02/13/18 07:00 Levothyroxine [Synthroid] 150 mcg PO DAILY@0700 02/13/18 08:00 Insulin Aspart [NovoLOG] 2 - 10 unit SUBQ 0800,1200,1700,2100 02/13/18 09:00 Neutra-Phos [K-Phos Neutral] 250 mg PO TIDWM@0900,1200,1700 02/13/18 14:00 Lumbar Spine W/O [MRI] Routine Consult/Specialty: PT, Other (Ortho) Plan Discussed with:: Patient Time Spent: 31-60 minutes Subjective - Subjective Patient Reports: Diarrhea (Continues to have diarrhea but able to make it to bathroom this am), Other (No fevers, no abdominal pain.) Nursing Reports: No Complaints Objective Vital Signs: Vital Signs - 24 hr 02/12/18 02/12/18 02/13/18 16:04 20:52 04:52 Temperature 36.4 C L 36.1 C L Heart Rate Heart Rate [ 65 60 64 Monitoring electrodes] Respiratory 18 12 Rate Blood Pressure 158/89 H 162/83 H 145/83 H [Right Brachial artery] O2 Saturation 95 95 02/13/18 02/13/18 08:08 09:27 Temperature 36.5 C Heart Rate 60 Heart Rate [ 58 L Monitoring electrodes] Respiratory 14 14 Rate Blood Pressure 164/94 H [Right Brachial artery] O2 Saturation 97 Oxygen O2 Source [With Activity] Room air O2 Source Room air I&O (Last 24 Hrs): Intake and Output Totals x24h 02/11/18 02/12/18 02/13/18 23:59 23:59 23:59 Intake Total 3979.333 2359.333 1736.667 Output Total 350 1150 800 Balance 3629.333 1209.333 936.667 General: Alert, Oriented x3, Cooperative, No acute distress, Other (Obese) HEENT: Atraumatic, PERRLA, EOMI, Other (Dry mucus membanes) Neck: Supple, No JVD, No thyromegaly, +2 carotid pulse wo bruit, No LAD Lymphatic: no adenopathy Neuro: Alert, Non Focal, CN 2-12 Grossly Intact, Oriented Times 3 Cardiovascular: Regular rate, Normal S1, Normal S2, No murmurs Respiratory: Chest non-tender, No respiratory distress, Breath sounds nml Abdomen: Normal bowel sounds, Soft, No tenderness, No hepatospenomegaly Extremities: No clubbing, No cyanosis, No edema, Normal pulses Skin: No rashes, No breakdown - Results Results: Laboratory Results WBC 7.7 x10^3/uL (4.8-10.8) 02/13/18 05:05 RBC 4.65 10^6/uL (4.70-6.10) L 02/13/18 05:05 Hgb 13.8 g/dL (14.0-18.0) L 02/13/18 05:05 Hct 41.1 % (42.0-52.0) L 02/13/18 05:05 MCV 88.2 fL (80.0-94.0) 02/13/18 05:05 MCH 29.7 pg (27.0-31.0) 02/13/18 05:05 MCHC 33.7 g/dL (32.0-36.0) 02/13/18 05:05 RDW 14.1 % (12.0-15.0) 02/13/18 05:05 Plt Count 178 10^3/uL (130-450) 02/13/18 05:05 MPV 9.0 fL (7.4-11.4) 02/13/18 05:05 Neut # (Auto) 5.4 10^3/uL (1.5-6.6) 02/13/18 05:05 Lymph # (Auto) 1.2 10^3/uL (1.5-3.5) L 02/13/18 05:05 [place] # (Auto) 0.8 10^3/uL (0.0-1.0) 02/13/18 05:05 Eos # (Auto) 0.1 10^3/uL (0.0-0.7) 02/13/18 05:05 Baso # (Auto) 0.1 10^3/uL (0.0-0.1) 02/13/18 05:05 Absolute Nucleated RBC 0.00 x10^3/uL 02/13/18 05:05 Nucleated RBC % 0.0 /100WBC 02/13/18 05:05 Sodium 138 mmol/L (135-145) 02/13/18 05:05 Potassium 3.7 mmol/L (3.5-5.0) 02/13/18 05:05 Chloride 111 mmol/L (101-111) 02/13/18 05:05 Carbon Dioxide 21 mmol/L (21-32) 02/13/18 05:05 Anion Gap 6.0 (6-13) 02/13/18 05:05 BUN 17 mg/dL (6-20) 02/13/18 05:05 Creatinine 1.0 mg/dL (0.6-1.2) 02/13/18 05:05 Estimated GFR (MDRD) 74 (>89) L 02/13/18 05:05 Glucose 155 mg/dL (70-100) H 02/13/18 05:05 Glycated Hemoglobin 6.9 % (4.6-6.2) H 02/11/18 04:40 Estim Average Glucose 151 (70-100) H 02/11/18 04:40 Calcium 9.1 mg/dL (8.5-10.3) 02/13/18 05:05 Ionized Calcium NO 02/13/18 05:05 Phosphorus 2.1 mg/dL (2.5-4.6) L 02/13/18 05:05 Magnesium 2.0 mg/dL (1.7-2.8) 02/13/18 05:05 Total Bilirubin 0.7 mg/dL (0.2-1.0) 02/13/18 05:05 AST 11 IU/L (10-42) 02/13/18 05:05 ALT 14 IU/L (10-60) 02/13/18 05:05 Alkaline Phosphatase 67 IU/L (42-121) 02/13/18 05:05 Total Creatine Kinase 56 IU/L (22-269) 02/10/18 10:31 Troponin I < 0.04 ng/mL (<0.49) 02/10/18 10:31 Total Protein 6.0 g/dL (6.7-8.2) L 02/13/18 05:05 Albumin 3.5 g/dL (3.2-5.5) 02/13/18 05:05 Globulin 2.5 g/dL (2.1-4.2) 02/13/18 05:05 Albumin/Globulin Ratio 1.4 (1.0-2.2) 02/13/18 05:05 Lipase 49 U/L (22-51) 02/10/18 10:31 TSH 0.54 uIU/mL (0.34-5.60) 02/11/18 04:40 Urine Color DARK YELLOW 02/10/18 12:03 Urine Clarity CLEAR (CLEAR) 02/10/18 12:03 Urine pH 5.5 PH (5.0-7.5) 02/10/18 12:03 Ur Specific [place] >=1.030 (1.002-1.030) H 02/10/18 12:03 Urine Protein NEGATIVE mg/dL (NEGATIVE) 02/10/18 12:03 Urine Glucose (UA) NEGATIVE mg/dL (NEGATIVE) 02/10/18 12:03 Urine Ketones TRACE mg/dL (NEGATIVE) 02/10/18 12:03 Urine Occult Blood NEGATIVE (NEGATIVE) 02/10/18 12:03 Urine Nitrite NEGATIVE (NEGATIVE) 02/10/18 12:03 Urine Bilirubin NEGATIVE (NEGATIVE) 02/10/18 12:03 Urine Urobilinogen 0.2 (NORMAL) E.U./dL (NORMAL) 02/10/18 12:03 Ur Leukocyte Esterase NEGATIVE (NEGATIVE) 02/10/18 12:03 Ur Microscopic Review NOT INDICATED 02/10/18 12:03 Urine Culture Comments NOT INDICATED 02/10/18 12:03 Stool Leukocytes, Qual POSITIVE (Negative) 02/12/18 08:00 - Procedures Procedures: Procedures INSPECTION OF LOWER INTESTINAL TRACT, ENDO (06/21/16) ABX Reporting Has patient been on IV antibiotics over the past 48 hours?: No Current Medications - Current Medications Current Medications: Active Medications Generic Name Dose Route Start Last Admin Trade Name Freq PRN Reason Stop Dose Admin Acetaminophen 650 mg 02/10/18 16:46 02/10/18 21:13 Tylenol PO 650 mg Q4HR PRN Administration Pain 1 to 4 Hydrocodone Bitart/Acetaminophen 1 tab 02/10/18 16:46 [place] 5/325 PO Q4HR PRN Pain 5 to 7 Hydrocodone Bitart/Acetaminophen 1 tab 02/10/18 16:46 [place] 10 Mg/325 Mg PO Q4HR PRN Pain 8 to 10 Albuterol 2.5 mg 02/10/18 16:59 02/13/18 09:24 INH 2.5 mg RTQ4H PRN Administration Wheezing Amlodipine Besylate 5 mg 02/10/18 21:00 02/13/18 10:14 Norvasc PO 5 mg BID BALAJI Administration Aspirin 81 mg 02/10/18 18:00 02/13/18 10:14 St Mehul Aspirin PO 81 mg DAILY BALAJI Administration Atorvastatin Calcium 10 mg 02/10/18 16:52 02/13/18 10:14 Lipitor PO 10 mg DAILY BALAJI Administration Azithromycin 500 mg 02/12/18 10:00 02/13/18 10:14 Zithromax PO 02/15/18 09:59 500 mg DAILY BALAJI Administration Carvedilol 25 mg 02/10/18 21:00 02/13/18 10:14 Coreg PO 25 mg BID BALAJI Administration Famotidine 20 mg 02/10/18 21:00 02/13/18 10:14 Pepcid PO 20 mg BID BALAJI Administration Fluconazole 100 mg 02/11/18 09:00 02/13/18 10:15 Diflucan PO 100 mg DAILY [facility] Administration Fluticasone Propionate 1 sprays 02/10/18 16:52 Flonase [place]TON PRN PRN Allergy Symptoms Hydralazine HCl 50 mg 02/13/18 17:00 Apresoline PO QID [facility] Sodium Chloride 1,000 mls @ 100 mls/hr 02/10/18 17:00 02/13/18 12:28 Normal Saline 0.9% IV 100 mls/hr .Q10H BALAJI Administration Ibuprofen 600 mg 02/10/18 16:46 Motrin PO Q6HR PRN Pain 1 to 4 Insulin Aspart 2 - 10 unit 02/13/18 08:00 02/13/18 12:28 Novolog SUBQ Not Given 0800,1200,1700,2100 [facility] Protocol Levothyroxine Sodium 150 mcg 02/13/18 07:00 02/13/18 10:14 Synthroid PO 150 mcg DAILY@0700 BALAJI Administration Losartan Potassium 50 mg 02/10/18 21:00 02/13/18 10:15 Cozaar PO 50 mg BID BALAJI Administration Magnesium Oxide 800 mg 02/10/18 21:00 02/13/18 10:13 Mag Ox PO 800 mg BID BALAJI Administration Methocarbamol 500 mg 02/11/18 13:47 Robaxin PO Q6HR PRN Spasms Morphine Sulfate 2 mg 02/10/18 16:46 Morphine (Carpuject) IVP Q2HR PRN Pain 8 to 10 Ondansetron HCl 4 mg 02/10/18 16:46 02/13/18 04:49 Zofran Inj IVP 4 mg Q6HR PRN Administration Nausea / Vomiting Pantoprazole Sodium 40 mg 02/13/18 07:15 02/13/18 10:15 Protonix PO 40 mg QDAC BALAJI Administration Polyethylene Glycol 17 gm 02/11/18 09:00 02/13/18 10:20 Miralax PO Not Given DAILY BALAJI Prednisone 40 mg 02/10/18 18:00 02/13/18 10:13 Deltasone PO 40 mg DAILYWM BALAJI Administration Multivit/Folic Acid/Iron 1 tab 02/10/18 19:00 02/13/18 10:14 Trinatal Rx 1 PO 1 tab DAILY BALAJI Administration Prochlorperazine Edisylate 10 mg 02/10/18 16:46 Compazine Inj IVP Q6HR PRN Nausea / Vomiting Promethazine HCl 25 mg 02/10/18 16:46 Phenergan Inj IM Q6HR PRN Nausea / Vomiting Sodium Chloride 10 ml 02/10/18 16:46 02/13/18 04:51 Normal Saline Flush 0.9% IVP 10 ml PRN PRN Administration NEEDED PER PROVIDER ORDERS Sodium Chloride 10 ml 02/10/18 17:00 02/13/18 10:19 Normal Saline Flush 0.9% IVP Not Given 0100,0900,1700 [facility] Sodium Phosphate 250 mg 02/13/18 09:00 02/13/18 12:32 K-Phos Neutral PO 250 mg TIDWM@0900,1200,1700 BALAJI Administration Tacrolimus 1.5 mg 02/10/18 21:00 02/13/18 11:39 Prograf PO 1.5 mg BID BALAJI Administration Zolpidem Tartrate 5 mg 02/10/18 16:46 Ambien PO QPM PRN Insomnia Acetaminophen [Tylenol] 650 mg PO Q6H PRN 05/12/13 Aspirin Chewable [St Mehul Aspirin] 81 mg PO DAILY 05/12/13 Fluconazole [Diflucan] 100 mg PO DAILY 05/12/13 Levothyroxine Sodium [Synthroid] 150 mcg PO DAILY 05/12/13 Omeprazole [Prilosec] 20 mg PO DAILY 05/12/13 Prednisone 5 mg PO DAILY 05/12/13 Simvastatin [Zocor] 10 mg PO DAILY 05/12/13 Albuterol 2.5 mg INH Q4H PRN 06/21/16 Carvedilol 25 mg PO BID 06/21/16 Fluticasone [Flonase] 1 sprays [place] PRN PRN 06/21/16 Glipizide 5 mg PO BID 06/21/16 Losartan [Cozaar] 50 mg PO BID 06/21/16 Magnesium Oxide 800 mg PO BID 06/21/16 Metformin HCl 1,000 mg PO BID 06/21/16 Pnv95/Ferrous Fumarate/FA [ Vitamin Tablet] 1 each PO DAILY 06/21/16 Tacrolimus 1.5 mg PO BID 06/21/16 amLODIPine [Norvasc] 5 mg PO BID 06/21/16
--- NOTE | 2018-02-13 16:00 | MRI Report ---
Reason: Fecal incontinence and lumbar back pain h/o gaby Procedure Date: 02/13/2018 Accession Number: [id number] / [id number] Procedure: MRI - Lumbar Spine W/O CPT Code: FULL RESULT: MRI LUMBAR SPINE WITHOUT CONTRAST TECHNIQUE: 1. Sagittal STIR, T1 and T2 2. Axial T1 and T2. COMPARISON: None. FINDINGS: Bone window images from recent abdomen/pelvis CT (02/10/2018) have been reviewed, confirming the presence of 5 [id number], lumbar-type vertebrae. Postsurgical changes are demonstrated at L3-L4. There is evidence of previous bilateral laminectomy at L3. In addition, changes of previous instrumented posterolateral fusion are demonstrated with transpedicular screws and interconnecting rods in place. There is some magnetic susceptibly artifact from the pedicle screws; however, this is not resulting in significant image degradation. Better demonstrated on the bone window images for abdomen/pelvis CT is left lateral listhesis of L3 on L4. In the sagittal plane, there is a grade 1 anterolisthesis of L3 on L4 measuring about 5 mm. In addition, there is minor stepwise retrolisthesis of T12 on L1 and L1 on L2. Alignment is otherwise unremarkable. The L4-L5 disk appears relatively well hydrated. Otherwise, there is obvious degenerative change involving the lumbar disks. There is marked disk space narrowing at L3-L4. Mild disk space narrowing is seen at L1-L2 with mild to moderate narrowing at L2-L3. There is moderate to severe disk space narrowing at L5-S1. The L4-L5 disk space height is maintained. Type II reactive marrow changes are identified in the vertebral endplates at L2-L3, L3-L4, and L5-S1. There is type II reactive marrow change surrounding a Schmorl node deformity in the superior endplate of L2. The marrow signal intensity is otherwise unremarkable. There is mild anterior wedging of the T11, T12, and L1 vertebral bodies. This can be seen as a normal anatomical variant at the thoracolumbar junction. The vertebral body heights are otherwise preserved. The conus terminates in an appropriate fashion above the L1-L2 disk level. There is no abnormal thickening or lipomatous change of the filum. Imaged only in the sagittal plane is a broad-based, posterior extrusion at T10-T11. In addition, there is prominence of the intralaminar fat pad at this level. The mid sagittal canal diameter is reduced to a little over 7 mm and the CSF surrounding the cord is effaced. No obvious flattening or deformity of the cord is seen. There appears to be severe left-sided foraminal stenosis at T10-T11 with moderate right-sided foraminal narrowing. Axial images: Small posterior central extrusion with mild mass effect on the ventral aspect of the thecal sac. Degenerative facet arthrosis with bony hypertrophy causing minor mass effect on the dorsal aspect of the thecal sac. The spinal canal is small, but no significant-appearing stenosis is demonstrated. No evidence of cord impingement. No significant foraminal narrowing. T12-L1: Small protrusions are demonstrated paracentrally on the right and left with mild mass effect on the thecal sac. No spinal stenosis. The neural foramina appear widely patent. L1-L2: Retrolisthesis. Circumferential disk bulge without focal posterior protrusion or extrusion. Broad-based intraforaminal/extraforaminal protrusions or extrusions bilaterally. Mild to moderate redundancy of the ligamenta flava. Mildly prominent intralaminar fat pad. Circumferential thecal sac compression with moderate generalized (central and subarticular zone)spinal stenosis. Mild to moderate foraminal stenoses. L2: A roughly 7 mm AP by 7 mm transverse and 10 mm craniocaudad rounded mass is identified in the ventral epidural space on the right. This almost certainly represents inferiorly migrated extruded or sequestered disk material. There is associated right subarticular zone narrowing with probable compromise of the traversing right L2 nerve root L2-L3: Broad-based intraforaminal/extraforaminal extrusions bilaterally. Small right paracentral extrusion with roughly 6.5 mm caudal migration of extruded or sequestered disk material in the ventral epidural space along the dorsal margin of the upper L3 vertebral body. The subarticular zones are narrowed, right slightly greater than left. However, no definite compromise of either traversing L3 nerve root is identified. No central zone spinal stenosis. Moderate foraminal stenoses are demonstrated bilaterally. L3-L4: Anterolisthesis with associated uncovering of the disk. In addition, there is a fairly large superiorly directed extrusion paracentrally on the right with intraforaminal extension. The right subarticular zone is stenosed and there certainly could be compromise of traversing right L5 nerve root. No significant central zone or left subarticular zone narrowing. High-grade right foraminal stenosis. Complete effacement of perineural fat surrounding the exiting right L3 nerve root. Moderate left-sided foraminal stenosis. L4-L5: No focal disk herniation. Degenerative facet arthrosis with moderate bony hypertrophy. Mild to moderate redundancy of the ligamenta flava. The subarticular zones are stenosed bilaterally; however, no jones impingement of either traversing L5 nerve root is demonstrated. Mild central zone spinal stenosis. Moderate foraminal stenoses. L5-S1: Small broad-based posterior bulge with associated osteophyte. Superimposed focal extrusion posterolaterally on the left. The extrusion appears to project posteriorly into the spinal canal for at least 6.5 mm. There is evidence of previous left hemilaminotomy. The left ligamentum flavum has been removed. Degenerative facet arthrosis without significant bony hypertrophy. There is left subarticular zone narrowing. The traversing left S1 nerve root is deflected posteriorly in the subarticular zone. No jones compression of the nerve root is demonstrated. No central zone or right subarticular zone stenosis. Broad-based intraforaminal/extraforaminal extrusions with associated intraforaminal osteophyte bilaterally. Moderate left and mild to moderate right foraminal stenoses. The L5 nerve roots appear to exit noncompressed. There is at least moderate fatty atrophy in the posterior paraspinal musculature in the lower lumbar/upper sacral region. Again noted is a transplanted kidney in right lower abdomen. IMPRESSION: 1. Postsurgical changes are seen at L3-L4 as described. There is evidence of previous instrumented posterior fusion with pedicle screws and interconnecting rods. 2. There is a grade I anterolisthesis of L3 on L4. 3. Degenerative disk and facet changes are seen throughout the lumbar spine and in the lower thoracic spine as documented above. There are associated central, subarticular, and foraminal zone stenoses. The most significant stenoses are as follows: A. Imaged in the sagittal plane only is significant-appearing spinal stenosis at T10-T11. The CSF surrounding the cord is completely effaced. However, no definite cord impingement is seen. There is severe left T10-T11 foraminal stenosis and there could be compromise of exiting left T10 nerve root. B. A mass in the ventral epidural space on the right and upper L2 level (probably inferiorly migrated disk fragment) gives rise to high-grade right subarticular zone stenosis with probable compromise of right L2 nerve root. Recommend clinical correlation for right L2 radiculopathy. C. Inferiorly migrated disk fragment at L3-L4 gives rise to right subarticular zone narrowing; however, no definite compromise of traversing right L3 nerve root is demonstrated. D. Severe right subarticular zone stenosis at L3-L4 with possible compromise of the traversing right L4 nerve root. Recommend clinical correlation for possible right L4 radiculopathy. E. Intraforaminal extrusion gives rise to high-grade right L3-L4 foraminal stenosis with almost certain compromise of exiting right L3 nerve root. F. There is evidence of previous left hemilaminotomy at L5-S1. There is a moderate-sized extrusion paracentrally on the left that contacts and posteriorly deflects the traversing left S1 nerve root. No jones compression of the nerve root is demonstrated; however, this is a potential cause for left S1 nerve root irritation or mild impingement. Recommend clinical correlation for possible left S1 radiculitis/radiculopathy.
[2018-02-13 23:50] VITALS: BP 163/81
[2018-02-14 05:17] LABS: BASOPHILS # (AUTO) 0.1 10^3/uL (0.0-0.1); BASOPHILS % (AUTO) 0.8 %; EOSINOPHILS # (AUTO) 0.1 10^3/uL (0.0-0.7); EOSINOPHILS % (AUTO) 0.7 %; HGB - HEMOGLOBIN 13.7 g/dL (14.0-18.0); LYMPHOCYTES # (AUTO) 1.5 10^3/uL (1.5-3.5); LYMPHOCYTES % (AUTO) 16.6 %; MEAN CORPUSCULAR HEMOGLOBIN 29.6 pg (27.0-31.0); MEAN CORPUSCULAR HGB CONC 33.4 g/dL (32.0-36.0); MEAN CORPUSCULAR VOLUME 88.7 fL (80.0-94.0); MONOCYTES # (AUTO) 0.9 10^3/uL (0.0-1.0); MONOCYTES % (AUTO) 9.7 %; NEUTROPHILS # (AUTO) 6.5 10^3/uL (1.5-6.6); NEUTROPHILS % (AUTO) 72.2 %; PLT - PLATELET COUNT 187 10^3/uL (130-450); RED BLOOD COUNT 4.63 10^6/uL (4.70-6.10); RED CELL DISTRIBUTION WIDTH 13.9 % (12.0-15.0)
[2018-02-14 05:30] LABS: ALBUMIN 3.3 g/dL (3.2-5.5); ALBUMIN/GLOBULIN RATIO 1.3 (1.0-2.2); ALKALINE PHOSPHATASE 72 IU/L (42-121); ALT ALANINE AMINOTRANSFERASE 15 IU/L (10-60); AST ASPARTATE AMINOTRANSFERASE 14 IU/L (10-42); BILIRUBIN,TOTAL 0.5 mg/dL (0.2-1.0); BUN - BLOOD UREA NITROGEN 20 mg/dL (6-20); CALCIUM 9.1 mg/dL (8.5-10.3); CARBON DIOXIDE - CO2 23 mmol/L (21-32); CHLORIDE 110 mmol/L (101-111); CREATININE 1.1 mg/dL (0.6-1.2); GFR - MDRD 66 (>89); GLUCOSE 175 mg/dL (70-100); SODIUM 141 mmol/L (135-145); TOTAL PROTEIN 5.8 g/dL (6.7-8.2)
[2018-02-14] MEDS: LEVOTHYROXINE 75 MCG TABLET PO SCH (06:22)
[2018-02-14] MEDS: PANTOPRAZOLE 40 MG TABLET PO SCH (06:22)
[2018-02-14] MEDS ORDERED: predniSONE 5 MG TABLET PO SCH (09:00)
[2018-02-14] MEDS: amLODIPine 5 MG TABLET PO SCH (09:18)
[2018-02-14] MEDS: CARVEDILOL 12.5 MG TABLET PO SCH (09:18)
[2018-02-14] MEDS: MAGNESIUM OXIDE 400 MG TABLET PO SCH (09:18)
[2018-02-14] MEDS: FAMOTIDINE 20 MG TABLET PO SCH (09:18)
[2018-02-14] MEDS: ASPIRIN CHEW 81 MG TABLET PO SCH (09:18)
--- NOTE | 2018-02-14 09:18 | Discharge Plan ---
Discharge Plan Disposition: Home, Self Care Condition: Stable Prescriptions: HYDROcodone/ACET 10/325 [[place] 10 mg/325 mg] 1 tab PO Q4HR PRN #10 tablet PRN Reason: Pain 8 to 10 Azithromycin [Zithromax] 500 mg PO DAILY #4 tablet hydrALAZINE [Apresoline] 50 mg PO QID #100 tablet Diet: Low Sodium Activity Restrictions: Activity as Tolerated Shower Restrictions: No Driving Restrictions: No Instruction Topics: Campylobacter Infec, Campylobacter Culture Stool Additional Instructions or Follow Up instructions: Take two more full days of Zithromax antibiotic. Resume all your other medications, including the pre-hospitalization Prednisone dose. See your PCP in 1-2 weeks in hospital follow-up and for medication refills. No Smoking: If you smoke, Please STOP! Call for help. Follow-up with: Zoila Jules DO [Primary Care Provider] -
[2018-02-14] MEDS: ATORVASTATIN 10 MG TABLET PO SCH (09:19)
[2018-02-14] MEDS: PRENATAL VITAMIN TABLET PO SCH (09:19)
[2018-02-14] MEDS: AZITHROMYCIN 250 MG TABLET PO SCH (09:19)
[2018-02-14] MEDS: NEUTRA-PHOS 250 MG TABLET PO SCH (09:19)
[2018-02-14] MEDS: LOSARTAN 50 MG TABLET PO SCH (09:19)
[2018-02-14] MEDS: FLUCONAZOLE 100 MG TABLET PO SCH (09:19)
[2018-02-14] MEDS: TACROLIMUS 0.5 MG CAPSULE PO SCH (09:19)
[2018-02-14] MEDS: hydrALAZINE 25 MG TABLET PO SCH (09:19)
[2018-02-14] MEDS: INSULIN ASPART 300 UNIT/3 ML PEN SUBQ SCH (09:20)
[2018-02-14] MEDS: POLYETHYLENE GLYCOL 3350 17 GM PACKET PO SCH (09:20)
--- NOTE | 2018-02-14 20:12 | DISCHARGE SUMMARY ---
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 The patient presented to the emergency room with chief complaint of back pain with alternating spasms on both sides of his lower back and also new incontinence of both urine and stool. He was in too much pain and too weak to ambulate after having pain medications administered in the ER and he was initially placed in Observation status for pain management for intractable pain. During this stay, he developed severe diarrhea and was made inpatient status for management of his fluid and electrolyte losses and antibiotic treatment for what testing showed was Campylobacter diarrhea. HOSPITAL COURSE AND DISCHARGE DIAGNOSES 1. Campylobacter diarrhea. On 02/12/2018, the patient awoke incontinent of stool, and he had 10 more liquid bowel movements that day. Stool sampling showed Campylobacter. The patient reported that his dog at home had diarrhea, and research shows that 6% of Campylobacter diarrhea can be caught from an animal source. The patient was started on Zithromax 500 mg daily. By 48 hours, his diarrhea had stopped and he was deemed stable for discharge. 2. Intractable back pain. The Hospitalist spoke to his Orthopedic spine surgeon (Dr. Dominguez), who stated that it would be very unlikely that the patient had cord compression with symptoms that were occurring intermittently. He had full control of his bladder eventually and then also the diarrhea resolved. An MRI was recommended and outpatient followup with the specialist at the clinic. The patient did have an MRI with an extensive list of abnormal findings. The patient was given a copy of his MRI images, on a disk, as well as the final radiology report, to take with him for the orthopedic spinal surgery clinic visit. The specialist had also advised that his daily Prednisone dose be increased for management, and so the patient was on 60 mg p.o. daily, which was changed back to his prehospital dose at the time of discharge. He also required [place], iv Morphine, Tylenol and Robaxin for pain control. 3. Weakness. The patient did not have any focal weakness or lower extremity or torso weakness. The weakness was probably a combination of infectious illness, electrolyte and fluid losses, narcotic pain medication use and the multiple abnormal findings present on the spinal CT may have contributed. 4. Chronic renal failure, stage 2. The patient has a history of renal transplant and is immunosuppressed. The BUN and creatinine on admission were 26 and 1.3, and with hydration daily this improved to 20 and 1.1 at the time of discharge. 5. Renal transplant. He was continued on his Tacrolimus, and the Prednisone dose was increased for a burst of several days, as described above. The patient is immunocompromised because of his use of these. For this reason, he was treated with antibiotics for his Campylobacter positive diarrhea. 6. Hypertension. The patient was kept on his Cozaar, Amlodipine, and Coreg. Hydralazine needed to be added because of poor blood pressure control and he was discharged with a new prescription for Hydralazine 50 mg p.o. q.i.d. He knows to check his blood pressure and not take the Hydralazine if blood pressure is running low. 7. Diabetes, type 2. The patient's Glipizide and Metformin were on hold while here and he was on a sliding scale insulin with a diabetic diet. His hemoglobin A1c was 6.9, indicating good glucose control. 8. Hyperlipidemia. The patient was kept on his statin while here. 9. Hypothyroidism. The TSH value was 0.54 on lab testing. His Levothyroxine dose was continued while here. LABS AND IMAGING: Reviewed and summarized above. ALLERGIES: NONE. MEDICATIONS AT THE TIME OF DISCHARGE 1. Tylenol 650 mg p.o. every 6 hours p.r.n. 2. Albuterol inhaler p.r.n. 3. Amlodipine 5 mg b.i.d. 4. Baby aspirin daily. 5. Carvedilol 25 mg b.i.d. 6. Diflucan when needed. 7. Flonase spray p.r.n. 8. Glipizide 5 mg b.i.d. 9. Levothyroxine 150 mcg daily. 10. Cozaar 50 mg b.i.d. 11. Magnesium oxide 800 mg b.i.d. 12. Metformin 1000 mg b.i.d. 13. Prilosec 20 mg daily. 14. Multivitamin with iron daily. 15. Prednisone 5 mg daily. 16. Zocor 10 mg daily. 17. Tacrolimus 1.5 mg b.i.d. 18. Zithromax 500 mg daily for 2 additional days for a total of 5-day course 19. Tylenol with codeine 10/325 mg every 4 hours p.r.n. severe pain. 20. Hydralazine 50 mg q.i.d. for blood pressure management. CONDITION AT DISCHARGE: Stable. PHYSICAL EXAMINATION VITAL SIGNS: Stable. Blood pressure 163/80, heart rate 66 in sinus rhythm, afebrile, room air saturation 95%. HEENT: Unremarkable. NECK: Without JVD or carotid bruits. CHEST: Clear. CARDIAC: Heart sounds normal. ABDOMEN: Obese with normal bowel sounds. Nontender. No organomegaly. EXTREMITIES: No edema. NEUROLOGIC: Grossly intact. FOLLOWUP: He was advised to see his PCP in 1-2 weeks, and the Orthopedic Spine surgeon in 1-2 weeks. CODE STATUS: FULL CODE. Time required to complete to complete this entire discharge, chart review, dictation, prescription orders: 65 minutes. cc: Shin Maravilla DO - Spine SurgeonYogesh cc: Zoila Jules DO TD: 02/14/2018 18:13 MTDD
[2018-02-16 14:30] LABS: NOROVIRUS RNA PCR STOOL DETECTED
== END 2018-02-14 10:28 | disposition home or self-care (01) | DRG 552 ==
LOC: EDUNIT# → ED 08:59 → MS3 16:46 → OBSVTOIN 02-11 13:46
PROVIDERS: ADMIT Internal Medicine; ATTEND Internal Medicine
DX: M54.5 Low back pain (principal); A04.5 Campylobacter enteritis; Q60.0 Renal agenesis, unilateral; Z94.0 Kidney transplant status; I12.9 Hypertensive chronic kidney disease with stage 1 through stage 4 chronic kidney disease, or unspecified chronic kidney disease; E11.22 Type 2 diabetes mellitus with diabetic chronic kidney disease; N18.2 Chronic kidney disease, stage 2 (mild); E78.5 Hyperlipidemia, unspecified; E03.9 Hypothyroidism, unspecified; G89.29 Other chronic pain; R93.7 Abnormal findings on diagnostic imaging of other parts of musculoskeletal system; M43.16 Spondylolisthesis, lumbar region; E66.9 Obesity, unspecified; Z68.38 Body mass index [BMI] 38.0-38.9, adult; G47.30 Sleep apnea, unspecified; J45.909 Unspecified asthma, uncomplicated; K21.9 Gastro-esophageal reflux disease without esophagitis; M10.9 Gout, unspecified; N40.0 Benign prostatic hyperplasia without lower urinary tract symptoms; Z79.2 Long term (current) use of antibiotics; Z79.52 Long term (current) use of systemic steroids; Z79.51 Long term (current) use of inhaled steroids; Z79.84 Long term (current) use of oral hypoglycemic drugs; Z79.899 Other long term (current) drug therapy; Z98.1 Arthrodesis status; Z86.19 Personal history of other infectious and parasitic diseases
CPT/HCPCS: 36415; 71045; 72148; 74177; 80053; 81001; 81003; 82272; 82550; 83036; 83630; 83690; 83735; 84100; 84443; 84484; 85025; 87015; 87045; 87046; 87086; 87177; 87209; 87272; 87329; 87493; 87798; 94640; 96361; 96374; 99284; 99285

== ENCOUNTER 2018-02-24 10:01 | Outpatient (CLI) | payer MEDICARE, OTHER ==
[2018-02-24 13:14] LABS: BASOPHILS # (AUTO) 0.1 10^3/uL (0.0-0.1); BASOPHILS % (AUTO) 0.8 %; EOSINOPHILS # (AUTO) 0.2 10^3/uL (0.0-0.7); EOSINOPHILS % (AUTO) 1.9 %; HGB - HEMOGLOBIN 13.9 g/dL (14.0-18.0); LYMPHOCYTES # (AUTO) 1.5 10^3/uL (1.5-3.5); MEAN CORPUSCULAR HEMOGLOBIN 29.8 pg (27.0-31.0); MEAN CORPUSCULAR VOLUME 87.8 fL (80.0-94.0); MEAN PLATELET VOLUME 9.6 fL (7.4-11.4); MONOCYTES # (AUTO) 0.7 10^3/uL (0.0-1.0); MONOCYTES % (AUTO) 8.2 %; NEUTROPHILS # (AUTO) 6.3 10^3/uL (1.5-6.6); NEUTROPHILS % (AUTO) 72.1 %; PLT - PLATELET COUNT 181 10^3/uL (130-450); RED BLOOD COUNT 4.65 10^6/uL (4.70-6.10); RED CELL DISTRIBUTION WIDTH 13.9 % (12.0-15.0); WHITE BLOOD COUNT 8.8 x10^3/uL (4.8-10.8)
[2018-02-24 13:32] LABS: ALBUMIN 3.7 g/dL (3.2-5.5); ALBUMIN/GLOBULIN RATIO 1.7 (1.0-2.2); BILIRUBIN,TOTAL 0.8 mg/dL (0.2-1.0); CALCIUM 9.7 mg/dL (8.5-10.3); TOTAL PROTEIN 5.9 g/dL (6.7-8.2)
== END 2018-02-24 23:59 | disposition home or self-care (01) ==
LOC: LAB.WCP 10:01
PROVIDERS: ATTEND Family Medicine
DX: A08.4 Viral intestinal infection, unspecified (principal); I10 Essential (primary) hypertension; Z94.0 Kidney transplant status; M54.5 Low back pain; G89.29 Other chronic pain
CPT/HCPCS: 36415; 80053; 80197; 85025

== ENCOUNTER 2018-03-15 08:25 | Outpatient (CLI) | payer MEDICARE, OTHER ==
[2018-03-15 09:19] LABS: CALCIUM 10.1 mg/dL (8.5-10.3); CREATININE 1.3 mg/dL (0.6-1.2)
== END 2018-03-15 08:26 | disposition home or self-care (01) ==
LOC: LAB 08:25
PROVIDERS: ATTEND Family Medicine
DX: I10 Essential (primary) hypertension (principal)
CPT/HCPCS: 36415; 80048

== ENCOUNTER 2018-06-14 09:07 | Outpatient (CLI) | payer MEDICARE, OTHER ==
[2018-06-14 09:52] LABS: BASOPHILS # (AUTO) 0.1 10^3/uL (0.0-0.1); BASOPHILS % (AUTO) 0.6 %; EOSINOPHILS # (AUTO) 0.3 10^3/uL (0.0-0.7); HGB - HEMOGLOBIN 13.7 g/dL (14.0-18.0); LYMPHOCYTES # (AUTO) 1.4 10^3/uL (1.5-3.5); LYMPHOCYTES % (AUTO) 14.5 %; MEAN CORPUSCULAR HEMOGLOBIN 29.2 pg (27.0-31.0); MEAN CORPUSCULAR HGB CONC 33.6 g/dL (32.0-36.0); MEAN CORPUSCULAR VOLUME 86.8 fL (80.0-94.0); MEAN PLATELET VOLUME 9.2 fL (7.4-11.4); MONOCYTES # (AUTO) 0.8 10^3/uL (0.0-1.0); MONOCYTES % (AUTO) 8.2 %; NEUTROPHILS # (AUTO) 7.1 10^3/uL (1.5-6.6); NEUTROPHILS % (AUTO) 73.7 %; PLT - PLATELET COUNT 208 10^3/uL (130-450); RED CELL DISTRIBUTION WIDTH 14.4 % (12.0-15.0); WHITE BLOOD COUNT 9.6 x10^3/uL (4.8-10.8)
[2018-06-14 10:04] LABS: ALBUMIN/GLOBULIN RATIO 1.5 (1.0-2.2); BILIRUBIN,TOTAL 0.8 mg/dL (0.2-1.0); CALCIUM 10.2 mg/dL (8.5-10.3); CREATININE 1.4 mg/dL (0.6-1.2); PHOSPHORUS 3.2 mg/dL (2.5-4.6); TOTAL PROTEIN 6.6 g/dL (6.7-8.2)
== END 2018-06-14 09:08 | disposition home or self-care (01) ==
LOC: LAB 09:07
PROVIDERS: ATTEND Internal Medicine Nephrology
DX: Z94.0 Kidney transplant status (principal); Z48.298 Encounter for aftercare following other organ transplant; T86.40 Unspecified complication of liver transplant; E83.40 Disorders of magnesium metabolism, unspecified
CPT/HCPCS: 36415; 80053; 80197; 83735; 84100; 85025

== ENCOUNTER 2018-08-21 01:56 | Emergency (ER) | payer MEDICARE, OTHER ==
[2018-08-21] MEDS ORDERED: diltiaZEM INJ 5 MG/ML VIAL IVP STA (02:07)
[2018-08-21 02:21] LABS: BASOPHILS # (AUTO) 0.1 10^3/uL (0.0-0.1); BASOPHILS % (AUTO) 0.6 %; EOSINOPHILS # (AUTO) 0.2 10^3/uL (0.0-0.7); EOSINOPHILS % (AUTO) 2.1 %; HGB - HEMOGLOBIN 13.3 g/dL (14.0-18.0); LYMPHOCYTES # (AUTO) 1.5 10^3/uL (1.5-3.5); LYMPHOCYTES % (AUTO) 15.4 %; MEAN CORPUSCULAR HEMOGLOBIN 28.8 pg (27.0-31.0); MEAN CORPUSCULAR HGB CONC 32.5 g/dL (32.0-36.0); MEAN CORPUSCULAR VOLUME 88.5 fL (80.0-94.0); MEAN PLATELET VOLUME 10.9 fL (7.4-11.4); MONOCYTES # (AUTO) 0.7 10^3/uL (0.0-1.0); MONOCYTES % (AUTO) 7.3 %; NEUTROPHILS % (AUTO) 73.7 %; PLT - PLATELET COUNT 186 10^3/uL (130-450); RED BLOOD COUNT 4.62 10^6/uL (4.70-6.10); RED CELL DISTRIBUTION WIDTH 13.2 % (12.0-15.0); WHITE BLOOD COUNT 9.6 x10^3/uL (4.8-10.8)
[2018-08-21 02:35] LABS: ALBUMIN/GLOBULIN RATIO 1.6 (1.0-2.2); BILIRUBIN,TOTAL 0.7 mg/dL (0.2-1.0); CALCIUM 10.1 mg/dL (8.5-10.3); CREATININE 1.6 mg/dL (0.6-1.2); TOTAL PROTEIN 6.5 g/dL (6.7-8.2)
[2018-08-21] MEDS ORDERED: SODIUM CHLORIDE 0.9% 500 ML IV ONE (03:16)
[2018-08-21] MEDS ORDERED: PROCAINAMIDE 100 MG/1 ML 10 ML MDV IV ONE (03:24)
[2018-08-21] MEDS ORDERED: PROCAINAMIDE 100 MG/1 ML 10 ML MDV IV STA (03:56)
[2018-08-21] MEDS ORDERED: PROCAINAMIDE 1,000 MG/10 ML SYRINGE ONE (04:12)
--- NOTE | 2018-08-21 04:21 | ED Physician Documentation ---
History of Present Illness - Stated complaint Stated Complaint: FAST/SLOW HEART - Chief complaint Chief Complaint: Cardiac - History obtained from History obtained from: Patient - History of Present Illness Timing: How many hours ago (2) - Additonal information Additional information: The patient is a 67-year-old male who renal transplant, Type II diabetes, AR, and sleep apnea, who presents with palpitations that started about 2 hours prior to arrival. He denies chest pain, shortness of breath or lightheadedness. He denies cough or fever. He reports a history of similar symptoms 4 or 5 times over the past 20 years. The last time was about 1 year ago. He states the palpitations have always resolved by the time he got to the emergency department in the past. Review of Systems Constitutional: denies: Fever, Fatigue Ears: denies: Tinnitus/ringing Nose: denies: Congestion Throat: denies: Sore throat Cardiac: reports: Palpitations. denies: Chest pain / pressure Respiratory: denies: Dyspnea, Cough GI: denies: Abdominal Pain, Nausea, Vomiting : denies: Dysuria Skin: denies: Rash Musculoskeletal: denies: Back pain, Extremity swelling Neurologic: denies: Focal weakness, Numbness, Headache PD PAST MEDICAL HISTORY - Past Medical History Cardiovascular: Hypertension, High cholesterol, Atrial fibrillation Respiratory: Asthma, Sleep apnea, CPAP use Neuro: None Endocrine/Autoimmune: Type 2 diabetes, HyPOthyroidism GI: GERD : Benign prostate hypertrophy, Renal insuffiency Psych: None Musculoskeletal: Osteoarthritis, Gout, Fatigue, Chronic back pain - Past Surgical History Past Surgical History: Yes General: Colonoscopy, Other Ortho: Spine surgery HEENT: Other - Present Medications Home Medications: Ambulatory Orders Medication Instructions Recorded Confirmed Acetaminophen [Tylenol] 650 mg PO Q6H PRN 05/12/13 08/21/18 Aspirin Chewable [[place] 81 mg PO DAILY 05/12/13 08/21/18 Aspirin] Fluconazole [Diflucan] 100 mg PO DAILY 05/12/13 08/21/18 Levothyroxine Sodium [Synthroid] 150 mcg PO DAILY 05/12/13 08/21/18 Omeprazole [Prilosec] 20 mg PO DAILY 05/12/13 08/21/18 Prednisone 5 mg PO DAILY 05/12/13 08/21/18 Simvastatin [Zocor] 10 mg PO DAILY 05/12/13 08/21/18 Albuterol 2.5 mg INH Q4H PRN 06/21/16 08/21/18 Carvedilol 25 mg PO BID 06/21/16 08/21/18 Fluticasone [Flonase] 1 sprays [place] PRN PRN 06/21/16 08/21/18 Glipizide 5 mg PO BID 06/21/16 08/21/18 Losartan [Cozaar] 50 mg PO BID 06/21/16 08/21/18 Magnesium Oxide 800 mg PO BID 06/21/16 08/21/18 Metformin HCl 1,000 mg PO BID 06/21/16 08/21/18 Pnv95/Ferrous Fumarate/FA 1 each PO DAILY 06/21/16 08/21/18 [ Vitamin Tablet] Tacrolimus 1.5 mg PO BID 06/21/16 08/21/18 amLODIPine [Norvasc] 10 mg PO BID 06/21/16 08/21/18 hydroCHLOROthiazide 50 mg PO DAILY 08/21/18 08/21/18 [Hydrochlorothiazide] - Allergies Allergies/Adverse Reactions: Allergies Allergy/AdvReac Type Severity Reaction Status Date / Time No Known Drug Allergies Allergy Verified 08/21/18 02:04 - Social History Does the pt smoke?: No Smoking Status: Never smoker Does the pt drink ETOH?: No Does the pt have substance abuse?: No - Immunizations Immunizations are current?: Yes - POLST Patient has POLST: Yes POLST Status: Full Code PD ED PE NORMAL - Vitals Vital signs reviewed: Yes (Systolic hypertension.) - General General: Alert and oriented X 3, Well developed/nourished - HEENT HEENT: Atraumatic, Moist mucous membranes - Neck Neck: No adenopathy, No JVD - Cardiac Cardiac: Other (Rapid rate, irregularly irregular rhythm.) - Respiratory Respiratory: No respiratory distress, Clear bilaterally - Abdomen Abdomen: Soft, Non tender - Back Back: No CVA TTP - Derm Derm: No rash - Extremities Extremities: No edema, No calf tenderness / cord - Neuro Neuro: Alert and oriented X 3, No motor deficit, Normal speech Results - Vitals Vitals: Vital Signs - 24 hr 08/21/18 08/21/18 08/21/18 02:01 02:23 02:24 Temperature 36.5 C Heart Rate 102 H 112 H 92 Respiratory 28 H Rate Blood Pressure 155/83 H 117/81 H 123/70 O2 Saturation 97 08/21/18 08/21/18 08/21/18 02:32 03:05 03:48 Temperature Heart Rate 92 102 H 104 H Respiratory 16 16 20 Rate Blood Pressure 124/88 H 125/69 132/86 H O2 Saturation 96 95 93 08/21/18 08/21/18 08/21/18 04:21 04:37 04:48 Temperature Heart Rate 93 86 91 Respiratory 16 15 19 Rate Blood Pressure 145/78 H 142/84 H 130/82 H O2 Saturation 94 93 08/21/18 08/21/18 08/21/18 05:17 05:34 05:52 Temperature 36.6 C Heart Rate 46 L 46 L 46 L Respiratory 16 13 16 Rate Blood Pressure 141/83 H 137/77 H 126/75 O2 Saturation 94 96 96 08/21/18 08/21/18 06:08 06:26 Temperature Heart Rate 45 L 51 L Respiratory 20 16 Rate Blood Pressure 125/72 O2 Saturation 94 Oxygen O2 Source [] Room air O2 Source Room air - EKG (time done) 02:09 Rate: Rate (enter#) (98) Rhythm: Atrial fibrillation Ischemia: Q waves (in inferior leads III and aVF, consistent with previous inferior AR.), T wave inversion (in anterolateral leads I, aVL, and V3-V6.) Compare to prior EKG: Changed from prior EKG (A-fib is new compared to prior tracing of 02/04/2016.) Computer interpretation: Agree with computer 05:14 Rate: Rate (enter#) (45) Rhythm: Sinus bradycardia [place]: Normal Intervals: Normal [place] Ischemia: Q waves (in inferior lead III and aVF, consistent with previous inferior AR.), T wave inversion (in anterolateral leads I, aVL, and V3-V6.) Compare to prior EKG: Changed from prior EKG (No longer in A-fib.) Computer interpretation: Agree with computer - Labs Labs: Laboratory Tests 08/21/18 08/21/18 08/21/18 02:10 02:10 02:10 WBC 9.6 RBC 4.62 L Hgb 13.3 L Hct 40.9 L MCV 88.5 MCH 28.8 MCHC 32.5 RDW 13.2 Plt Count 186 MPV 10.9 Neut # (Auto) 7.0 H Lymph # (Auto) 1.5 [place] # (Auto) 0.7 Eos # (Auto) 0.2 Baso # (Auto) 0.1 Absolute Nucleated RBC 0.00 Nucleated RBC % 0.0 Sodium 143 Potassium 4.3 Chloride 105 Carbon Dioxide 25 Anion Gap 13.0 BUN 42 H Creatinine 1.6 H Estimated GFR (MDRD) 43 L Glucose 200 H Calcium 10.1 Total Bilirubin 0.7 AST 15 ALT 16 Alkaline Phosphatase 85 Troponin I < 0.04 Total Protein 6.5 L Albumin 4.0 Globulin 2.5 Albumin/Globulin Ratio 1.6 Lipase 20 L PD MEDICAL DECISION MAKING - ED course Complexity details: reviewed old records, reviewed results, re-evaluated patient, considered differential, d/w patient ED course: Patient's presentation is significant for new onset atrial fibrillation with rapid ventricular rate. His presentation does not suggest cardiac ischemia, and his troponin level is normal at less than 0.04. His electrolytes are normal. His BUN and creatinine are elevated at 42 and 1.6, which is above his levels from 2 months ago at 34 and 1.4.. Treatment in the emergency department included administration of normal saline 500 mL IV and diltiazem 15 mg IV. His ventricular rate transiently slowed into the 80s, without converting, and subsequently developed recurrent rapid ventricular rate. Procainamide 1 g was infused over 1 hour. The patient's rhythm converted just prior to completion of the infusion. Repeat electrocardiogram reveals sinus bradycardia with a rate of 46, without acute ischemic changes. I discussed with the patient, who is a retired urgent care physician, the importance of follow-up with his primary physician and referral to cardiology. He is already on carvedilol, so no further cardiac medication will be prescribed at this time. Discussion of anticoagulant therapy will be deferred to the filler and trimmer. Departure - Departure Disposition: 01 Home, Self Care Clinical Impression: Atrial fibrillation with rapid ventricular response, S/P kidney transplant Diabetes mellitus with hyperglycemia Qualifiers: Diabetes mellitus type: type 2 Diabetes mellitus long term care social worker insulin use: without long term care social worker use Qualified Code(s): E11.65 - Type 2 diabetes mellitus with hyperglycemia Condition: Stable Instructions: ED Afib Follow-Up: Zoila Jules DO [Provider Admit Priv/Credential] - Comments: Follow-up with your primary physician this week. Call today to schedule a follow-up appointment. You should have referral to cardiology for evaluation of your paroxysmal atrial fibrillation. Return to the emergency department if you develop recurrent palpitations, chest pain, shortness of breath, or otherwise worsening symptoms. Discharge Date/Time: 08/21/18 06:27
[2018-08-21 06:08] VITALS: BP 125/72
== END 2018-08-21 06:27 | disposition home or self-care (01) ==
LOC: ED 01:56
DX: I48.91 Unspecified atrial fibrillation (principal); Z94.0 Kidney transplant status; I25.2 Old myocardial infarction; E11.65 Type 2 diabetes mellitus with hyperglycemia; Z79.84 Long term (current) use of oral hypoglycemic drugs
CPT/HCPCS: 36415; 80053; 83690; 84484; 85025; 93005; 96374; 99283; 99284; J2690

== ENCOUNTER 2018-08-31 08:57 | Outpatient (CLI) | payer MEDICARE, OTHER | END 2018-08-31 08:58 | disposition home or self-care (01) | LOC: DI 08:57 | PROVIDERS: ATTEND Family Medicine | DX: I48.0 Paroxysmal atrial fibrillation (principal); I34.0 Nonrheumatic mitral (valve) insufficiency | CPT/HCPCS: 93306 ==

== ENCOUNTER 2018-10-25 10:05 | Outpatient (CLI) | payer MEDICARE, OTHER ==
[2018-10-25 10:41] LABS: BASOPHILS # (AUTO) 0.1 10^3/uL (0.0-0.1); BASOPHILS % (AUTO) 0.6 %; EOSINOPHILS # (AUTO) 0.2 10^3/uL (0.0-0.7); EOSINOPHILS % (AUTO) 2.4 %; LYMPHOCYTES # (AUTO) 1.2 10^3/uL (1.5-3.5); LYMPHOCYTES % (AUTO) 14.7 %; MEAN CORPUSCULAR HEMOGLOBIN 29.3 pg (27.0-31.0); MEAN CORPUSCULAR VOLUME 88.7 fL (80.0-94.0); MEAN PLATELET VOLUME 10.6 fL (7.4-11.4); MONOCYTES # (AUTO) 0.7 10^3/uL (0.0-1.0); MONOCYTES % (AUTO) 8.2 %; NEUTROPHILS % (AUTO) 72.4 %; PLT - PLATELET COUNT 189 10^3/uL (130-450); RED BLOOD COUNT 4.78 10^6/uL (4.70-6.10); RED CELL DISTRIBUTION WIDTH 13.3 % (12.0-15.0); WHITE BLOOD COUNT 8.3 x10^3/uL (4.8-10.8)
[2018-10-25 10:53] LABS: ALBUMIN/GLOBULIN RATIO 1.6 (1.0-2.2); CALCIUM 10.1 mg/dL (8.5-10.3); CREATININE 1.5 mg/dL (0.6-1.2); TOTAL PROTEIN 6.5 g/dL (6.7-8.2)
[2018-10-27 07:32] LABS: HB2 TOTAL 14.7 g/dL; HEMOGLOBIN A1C 0.94 g/dL
[2018-10-27 15:52] LABS: BK VIRUS DNA QN PCR DETECTED BUT <500 copies/mL; SOURCE PLASMA
== END 2018-10-25 10:06 | disposition home or self-care (01) ==
LOC: LAB 10:05
PROVIDERS: ATTEND Internal Medicine Nephrology
DX: D70.9 Neutropenia, unspecified (principal); E11.9 Type 2 diabetes mellitus without complications; T86.10 Unspecified complication of kidney transplant; B34.9 Viral infection, unspecified
CPT/HCPCS: 36415; 80053; 80197; 81599; 83036; 85025; 87799

== ENCOUNTER 2018-11-14 09:04 | Outpatient (CLI) | payer MEDICARE, OTHER ==
[2018-11-14 09:51] LABS: CALCIUM 9.8 mg/dL (8.5-10.3); CREATININE 1.3 mg/dL (0.6-1.2)
[2018-11-14 09:58] LABS: CHOL/HDL RATIO 5.1 (<5.0); CHOLESTEROL 154 mg/dL; HDL CHOLESTEROL 30 mg/dL; LDL CHOLESTEROL,CALCULATED 62 mg/dL; LDL/HDL RATIO 2.1 (<3.6); VLDL CHOLESTEROL 62 mg/dL
== END 2018-11-14 09:05 | disposition home or self-care (01) ==
LOC: LAB 09:04
PROVIDERS: ATTEND Family Medicine
DX: E11.9 Type 2 diabetes mellitus without complications (principal); C61 Malignant neoplasm of prostate; N05.9 Unspecified nephritic syndrome with unspecified morphologic changes; Z12.5 Encounter for screening for malignant neoplasm of prostate
CPT/HCPCS: 36415; 80048; 80061; 83721; 84153

== ENCOUNTER 2019-03-08 08:57 | Outpatient (CLI) | payer MEDICARE, OTHER ==
[2019-03-08 12:54] LABS: HB2 TOTAL 14.2 g/dL; HEMOGLOBIN A1C 1.05 g/dL; HEMOGLOBIN A1C % 8.9 % (4.6-6.2)
[2019-03-08 14:27] LABS: CALCIUM 9.8 mg/dL (8.5-10.3); CREATININE 1.3 mg/dL (0.6-1.2)
== END 2019-03-08 23:59 | disposition home or self-care (01) ==
LOC: LAB.WCP 08:57
PROVIDERS: ATTEND Family Medicine
DX: E11.9 Type 2 diabetes mellitus without complications (principal); Z94.0 Kidney transplant status
CPT/HCPCS: 36415; 80048; 80197; 83036

== ENCOUNTER 2019-03-24 08:42 | Emergency (ER) | payer MEDICARE, OTHER ==
--- NOTE | 2019-03-24 08:59 | ED Physician Documentation ---
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 fib in October 2018. He was chemically converted here in the emergency department and followed up with a prepper in [place]. They placed him on Eliquis. They did a stress test and an echo all of which looked "okay". He woke up this morning with a rapid heart rate that lasted for about 4 hours. He says he is now back to normal. Review of Systems Constitutional: denies: Fever Nose: denies: Congestion Throat: denies: Sore throat Cardiac: reports: Palpitations. denies: Chest pain / pressure, Pedal edema Respiratory: denies: Dyspnea GI: denies: Nausea, Vomiting : reports: Other (prior kidney transplant 2014) Neurologic: denies: Syncope Endocrine: reports: Other (Recently started on Trulicity for his diabetes which has done wonders for his blood sugar.) PD PAST MEDICAL HISTORY - Past Medical History Cardiovascular: Hypertension, High cholesterol, Atrial fibrillation Respiratory: Asthma, Sleep apnea, CPAP use Neuro: None Endocrine/Autoimmune: Type 2 diabetes, HyPOthyroidism GI: GERD : Benign prostate hypertrophy, Renal insuffiency Psych: None Musculoskeletal: Osteoarthritis, Gout, Fatigue, Chronic back pain - Past Surgical History Past Surgical History: Yes General: Colonoscopy, Other Ortho: Spine surgery HEENT: Other - Present Medications Home Medications: Ambulatory Orders Medication Instructions Recorded Confirmed Acetaminophen [Tylenol] 650 mg PO DAILY 05/12/13 10/25/18 Fluconazole [Diflucan] 100 mg PO DAILY 05/12/13 10/25/18 Levothyroxine Sodium [Synthroid] 150 mcg PO DAILY 05/12/13 10/25/18 Omeprazole [Prilosec] 20 mg PO DAILY 05/12/13 10/25/18 Prednisone 5 mg PO DAILY 05/12/13 10/25/18 Simvastatin [Zocor] 10 mg PO DAILY 05/12/13 10/25/18 Albuterol 2.5 mg INH Q4H PRN 06/21/16 10/25/18 Glipizide 5 mg PO BID 06/21/16 10/25/18 Losartan [Cozaar] 50 mg PO BID 06/21/16 10/25/18 Magnesium Oxide 500 mg PO DAILY PM 06/21/16 10/25/18 Metformin HCl 1,000 mg PO BID 06/21/16 10/25/18 Tacrolimus 1.5 mg PO BID 06/21/16 10/25/18 amLODIPine [Norvasc] 5 mg PO BID 06/21/16 10/25/18 hydroCHLOROthiazide 50 mg PO BID 08/21/18 10/25/18 [Hydrochlorothiazide] Dulaglutide [Trulicity] 1.5 mg SQ 03/24/19 - Allergies Allergies/Adverse Reactions: Allergies Allergy/AdvReac Type Severity Reaction Status Date / Time GUERRERO Inhibitors AdvReac Unknown Verified 03/24/19 09:09 seafood Allergy Hives Uncoded 03/24/19 09:09 - Social History Does the pt smoke?: No Smoking Status: Never smoker Does the pt drink ETOH?: No Does the pt have substance abuse?: No - Immunizations Immunizations are current?: Yes - POLST Patient has POLST: Yes POLST Status: Full Code PD ED PE NORMAL - Vitals Vital signs reviewed: Yes - General General: Alert and oriented X 3, No acute distress, Well developed/nourished, Other (Pleasant overweight 68-year-old man) - HEENT HEENT: Atraumatic, PERRL, EOMI - Neck Neck: Supple, no meningeal sign - Cardiac Cardiac: RRR, No murmur, No gallop, No rub, Strong equal pulses - Respiratory Respiratory: No respiratory distress, Clear bilaterally - Abdomen Abdomen: Normal bowel sounds, Soft, No organomegaly, Other (No tenderness over the orthotopic transplant site in the right lower quadrant.) - Derm Derm: Normal color, Warm and dry, No rash - Extremities Extremities: No edema - Neuro Neuro: Alert and oriented X 3, 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, No motor deficit, No sensory deficit, Normal speech - Psych Psych: Normal mood, Normal affect Results - Vitals Vitals: Vital Signs - 24 hr 03/24/19 03/24/19 03/24/19 09:02 11:09 11:44 Temperature 36.7 C 37.3 C 36.7 C Heart Rate 77 73 71 Respiratory 18 16 16 Rate Blood Pressure 126/84 H 137/74 H 128/92 H O2 Saturation 98 94 94 Oxygen O2 Source [] Room air O2 Source Room air - EKG (time done) 0849 Rate: Rate (enter#), Other (Occasional PAC) Rhythm: NSR Intervals: Wide QRS (Nonspecific intrafasicular block) Ischemia: Q waves (III) Other comments: Other comments (Poor R wave progression) - Labs Labs: Laboratory Tests 03/24/19 03/24/19 03/24/19 09:48 09:48 09:48 WBC 8.1 RBC 4.77 Hgb 14.1 Hct 42.2 MCV 88.5 MCH 29.6 MCHC 33.4 RDW 13.2 Plt Count 183 MPV 10.9 Neut # (Auto) 5.9 Lymph # (Auto) 1.2 L [place] # (Auto) 0.7 Eos # (Auto) 0.1 Baso # (Auto) 0.0 Absolute Nucleated RBC 0.00 Nucleated RBC % 0.0 PT 14.1 H INR 1.3 H Sodium 136 Potassium 3.6 Chloride 101 Carbon Dioxide 25 Anion Gap 10.0 BUN 31 H Creatinine 1.5 H Estimated GFR (MDRD) 46 L Glucose 188 H Calcium 10.0 Magnesium 1.8 Troponin I High Sens 03/24/19 09:48 WBC RBC Hgb Hct MCV MCH MCHC RDW Plt Count MPV Neut # (Auto) Lymph # (Auto) [place] # (Auto) Eos # (Auto) Baso # (Auto) Absolute Nucleated RBC Nucleated RBC % PT INR Sodium Potassium Chloride Carbon Dioxide Anion Gap BUN Creatinine Estimated GFR (MDRD) Glucose Calcium Magnesium Troponin I High Sens 11.1 - Rads (name of study) CXR Radiology: EMP read contemporaneously, See rad report (neg acute) PD MEDICAL DECISION MAKING - ED course Complexity details: reviewed results, re-evaluated patient, d/w patient ED course: Patient remains in a sinus rhythm and feels normal. No chest pain. Labs were discussed including his glucose of 188, BUN 31 creatinine 1.5 with normal potassium and magnesium. Chest x-ray was clear. He is in a sinus rhythm now and he feels back to normal. He is good to be discharged home and we discussed an kamila that and a device that he can attach to his cell phone that will read his heart rhythm at home. He is going to invest in that so that he will have peace of mind at home whether the tachycardia that he feels is actually A. fib or not. We did discuss the Trulicity and there is a 6% risk of sinus tachycardia associated with that. He states understanding and will follow-up as an outpatient as needed. Departure - Departure Disposition: 01 Home, Self Care Clinical Impression: Palpitations Condition: Good Instructions: Atrial Fibrillation Dc Follow-Up: Zoila Jules DO [Primary Care Provider] - Comments: Continue the Eliquis as prescribed. Follow-up with your primary care and or prepper. I think the device for your cell phone that can read your heart rhythm would be helpful at home for you. Return if you experience palpitations that last longer than a couple of hours or are associated with shortness of breath, chest pain, diaphoresis or other concerns. Discharge Date/Time: 03/24/19 11:54
[2019-03-24 09:54] LABS: BASOPHILS % (AUTO) 0.4 %; EOSINOPHILS # (AUTO) 0.1 10^3/uL (0.0-0.7); EOSINOPHILS % (AUTO) 1.7 %; HGB - HEMOGLOBIN 14.1 g/dL (14.0-18.0); LYMPHOCYTES # (AUTO) 1.2 10^3/uL (1.5-3.5); LYMPHOCYTES % (AUTO) 15.2 %; MEAN CORPUSCULAR HEMOGLOBIN 29.6 pg (27.0-31.0); MEAN CORPUSCULAR HGB CONC 33.4 g/dL (32.0-36.0); MEAN CORPUSCULAR VOLUME 88.5 fL (80.0-94.0); MEAN PLATELET VOLUME 10.9 fL (7.4-11.4); MONOCYTES # (AUTO) 0.7 10^3/uL (0.0-1.0); MONOCYTES % (AUTO) 8.3 %; NEUTROPHILS # (AUTO) 5.9 10^3/uL (1.5-6.6); NEUTROPHILS % (AUTO) 72.8 %; PLT - PLATELET COUNT 183 10^3/uL (130-450); RED BLOOD COUNT 4.77 10^6/uL (4.70-6.10); RED CELL DISTRIBUTION WIDTH 13.2 % (12.0-15.0); WHITE BLOOD COUNT 8.1 x10^3/uL (4.8-10.8)
[2019-03-24 10:02] LABS: INR 1.3 (0.8-1.2); PT - PROTHROMBIN TIME 14.1 secs (9.9-12.6)
--- NOTE | 2019-03-24 10:03 | XRAY Report ---
Reason: chest pain Procedure Date: 03/24/2019 Accession Number: [id number] / [id number] Procedure: XR - Chest 1 View X-Ray CPT Code: 09771 Final Report FULL RESULT: EXAM: CHEST RADIOGRAPHY EXAM DATE: 03/24/2019 09:58 AM. CLINICAL HISTORY: Chest pain. COMPARISON: 03/13/2017 radiograph. TECHNIQUE: 1 view. FINDINGS: Lungs/Pleura: No focal opacities evident. No pleural effusion. No pneumothorax. Mediastinum: Within exam limitations, the cardiomediastinal contour is normal. Other: None. IMPRESSION: Normal single view chest. RADIA
[2019-03-24 10:09] LABS: CREATININE 1.5 mg/dL (0.6-1.2); MAGNESIUM 1.8 mg/dL (1.7-2.8)
[2019-03-24 11:46] VITALS: BP 128/92
== END 2019-03-24 11:54 | disposition home or self-care (01) ==
LOC: ED 08:42
DX: I49.1 Atrial premature depolarization (principal); I44.60 Unspecified fascicular block; I45.81 Long QT syndrome; I48.91 Unspecified atrial fibrillation; Z79.01 Long term (current) use of anticoagulants; I10 Essential (primary) hypertension; E11.9 Type 2 diabetes mellitus without complications; Z79.84 Long term (current) use of oral hypoglycemic drugs; Z94.0 Kidney transplant status
CPT/HCPCS: 36415; 71045; 80048; 83735; 84484; 85025; 85610; 93005; 99284

== ENCOUNTER 2019-05-24 08:12 | Outpatient (CLI) | payer MEDICARE, OTHER ==
[2019-05-24 08:33] LABS: BASOPHILS % (AUTO) 0.5 %; EOSINOPHILS # (AUTO) 0.2 10^3/uL (0.0-0.7); EOSINOPHILS % (AUTO) 2.4 %; HGB - HEMOGLOBIN 14.4 g/dL (14.0-18.0); LYMPHOCYTES # (AUTO) 1.5 10^3/uL (1.5-3.5); LYMPHOCYTES % (AUTO) 17.3 %; MEAN CORPUSCULAR HEMOGLOBIN 30.6 pg (27.0-31.0); MEAN CORPUSCULAR HGB CONC 33.1 g/dL (32.0-36.0); MEAN CORPUSCULAR VOLUME 92.4 fL (80.0-94.0); MEAN PLATELET VOLUME 10.4 fL (7.4-11.4); MONOCYTES # (AUTO) 0.7 10^3/uL (0.0-1.0); MONOCYTES % (AUTO) 8.3 %; NEUTROPHILS # (AUTO) 5.9 10^3/uL (1.5-6.6); NEUTROPHILS % (AUTO) 70.1 %; PLT - PLATELET COUNT 193 10^3/uL (130-450); RED BLOOD COUNT 4.71 10^6/uL (4.70-6.10); RED CELL DISTRIBUTION WIDTH 12.9 % (12.0-15.0); WHITE BLOOD COUNT 8.4 x10^3/uL (4.8-10.8)
[2019-05-24 08:44] LABS: CALCIUM 9.8 mg/dL (8.5-10.3); CREATININE 1.5 mg/dL (0.6-1.2); MAGNESIUM 2.3 mg/dL (1.7-2.8)
[2019-05-24 08:52] LABS: HB2 TOTAL 14.6 g/dL; HEMOGLOBIN A1C 0.73 g/dL; HEMOGLOBIN A1C % 6.7 % (4.6-6.2)
[2019-05-30 05:59] LABS: BK VIRUS DNA QN PCR NO DNA DETECTED copies/mL; SOURCE WHOLE BLOOD
== END 2019-05-24 08:13 | disposition home or self-care (01) ==
LOC: LAB 08:12
PROVIDERS: ATTEND Family Medicine
DX: E11.22 Type 2 diabetes mellitus with diabetic chronic kidney disease (principal); N18.3 Chronic kidney disease, stage 3 (moderate); Z94.0 Kidney transplant status
CPT/HCPCS: 36415; 80048; 80197; 83036; 83735; 85025; 87799